=== PATIENT | male | born 1940 | race Caucasian/White ===

== ENCOUNTER → 2020-05-19 10:19 | Outpatient (BNVA) | payer MEDICARE, OTHER, SELFPAY | PROVIDERS: PCP Internal Medicine; Referring Provider Internal Medicine; Visit Provider Hospitalist | DX: J41.0 Simple chronic bronchitis (principal); J98.4 Other disorders of lung; R93.89 Abnormal findings on diagnostic imaging of other specified body structures; Z79.51 Long term (current) use of inhaled steroids; Z79.899 Other long term (current) drug therapy; Z87.891 Personal history of nicotine dependence | CPT/HCPCS: 99212 ==

== ENCOUNTER → 2020-05-21 09:28 | Outpatient (BNVA) | payer MEDICARE, OTHER, SELFPAY | PROVIDERS: PCP Internal Medicine; Referring Provider Internal Medicine; Visit Provider Internal Medicine Cardiovascular Disease | DX: I25.10 Atherosclerotic heart disease of native coronary artery without angina pectoris (principal); I10 Essential (primary) hypertension; E78.5 Hyperlipidemia, unspecified; I25.2 Old myocardial infarction; Z79.02 Long term (current) use of antithrombotics/antiplatelets; Z79.82 Long term (current) use of aspirin | CPT/HCPCS: 99212 ==

== ENCOUNTER 2020-06-10 08:40 | Outpatient (REF) | payer MEDICARE, OTHER, SELFPAY ==
[2020-06-10 10:45] LABS: MANUAL DIFF FLAG NO
[2020-06-10 10:57] LABS: Basophils Absolute Auto 0.1 X10*3/uL (0.0-0.2); Basophils Percent Auto 0.7 % (0-2); Eosinophils Absolute Auto 0.2 X10*3/uL (0.0-0.4); Eosinophils Percent Auto 3.4 % (0-4); Hematocrit 46.1 % (42-52); Hemoglobin 14.6 g/dl (14.0-18.0); Imm Gran Abs Auto 0.01 X10*3/uL (0.00-0.03); Imm Gran Pct Auto 0.1 % (0.0-0.4); Lymphocytes Absolute Auto 1.7 X10*3/uL (1.2-4.9); Lymphocytes Percent Auto 24.1 % (20-40); Mean Corpuscular HGB Conc 31.7 g/dl (31.0-36.0); Mean Corpuscular Hemoglobin 28.6 pg (27.0-33.0); Mean Corpuscular Volume 90.2 fL (80-98); Mean Platelet Volume 11.7 fL (9.4-12.4); Monocytes Absolute Auto 0.6 X10*3/uL (0.1-1.2); Monocytes Percent Auto 8.9 % (2-11); Neutrophils Absolute Auto 4.4 X10*3/uL (2.0-8.3); Neutrophils Percent Auto 62.8 % (45-73); Platelet Count 156 X10*3/uL (160-400); Red Blood Count 5.11 X10*6/uL (4.60-5.80); Red Cell Distribution Width 13.4 % (11.0-16.0); White Blood Count 7.1 X10*3/uL (4.8-10.8)
[2020-06-10 11:28] LABS: Alanine Aminotransferase 31 U/L (0-40); Albumin Level 3.8 g/dL (3.5-5.0); Alkaline Phosphatase 73 U/L (39-117); Anion Gap 15 (12-20); Aspartate Amino Transferase 30 U/L (5-37); Bilirubin Total 1.7 mg/dL (0.0-1.0); Blood Urea Nitrogen 13 mg/dL (9-16); Calcium 8.6 mg/dL (8.4-10.2); Carbon Dioxide 22 mmol/L (22-29); Chloride 103 mmol/L (96-108); Estimated Glomerular Filt Rate 54; Glucose Random 189 mg/dL (60-115); Potassium 3.7 mmol/l (3.3-5.1); Sodium 136 mmol/L (135-145); Total Protein 6.9 g/dL (6.5-8.0)
[2020-06-10 12:05] LABS: Estimated Average Glucose 128 mg/dL; Hemoglobin A1C 161.2168 umol/L; Hemoglobin A1c % 6.1 %
[2020-06-10 12:38] LABS: Creatinine Urine 105.89 mg/dL; Microalbum/Creatinine Ratio Ur 18.8 ug/mg cr
== END 2020-06-10 08:41 | disposition home or self-care (01) ==
LOC: HO.10HDL 08:40
PROVIDERS: Visit Provider Internal Medicine
DX: R73.03 Prediabetes (principal); I25.10 Atherosclerotic heart disease of native coronary artery without angina pectoris; I12.9 Hypertensive chronic kidney disease with stage 1 through stage 4 chronic kidney disease, or unspecified chronic kidney disease; N18.9 Chronic kidney disease, unspecified; J44.9 Chronic obstructive pulmonary disease, unspecified
CPT/HCPCS: 36415; 80053; 82043; 83036; 85025

== ENCOUNTER 2020-09-17 08:32 | Outpatient (REF) | payer MEDICARE, OTHER, SELFPAY ==
[2020-09-17 10:05] LABS: MANUAL DIFF FLAG NO
[2020-09-17 10:23] LABS: Estimated Average Glucose 120 mg/dL; Hemoglobin A1c % 5.8 %
[2020-09-17 10:34] LABS: Alanine Aminotransferase 32 U/L (0-40); Albumin Level 3.9 g/dL (3.5-5.0); Alkaline Phosphatase 78 U/L (39-117); Anion Gap 13 (12-20); Aspartate Amino Transferase 27 U/L (5-37); Bilirubin Total 1.9 mg/dL (0.0-1.0); Blood Urea Nitrogen 15 mg/dL (9-16); Calcium 9.1 mg/dL (8.4-10.2); Carbon Dioxide 25 mmol/L (22-29); Chloride 107 mmol/L (96-108); Estimated Glomerular Filt Rate 51; Glucose Fasting 125 mg/dL (60-99); Potassium 4.1 mmol/L (3.3-5.1); Sodium 141 mmol/L (135-145); Total Protein 7.3 g/dL (6.5-8.0)
[2020-09-17 10:35] LABS: Basophils Absolute Auto 0.1 X10*3/uL (0.0-0.2); Basophils Percent Auto 0.6 % (0-2); Eosinophils Absolute Auto 0.2 X10*3/uL (0.0-0.4); Eosinophils Percent Auto 2.6 % (0-4); Hematocrit 47.1 % (42-52); Hemoglobin 15.4 g/dl (14.0-18.0); Imm Gran Abs Auto 0.03 X10*3/uL (0.00-0.03); Imm Gran Pct Auto 0.4 % (0.0-0.4); Lymphocytes Absolute Auto 2.2 X10*3/uL (1.2-4.9); Lymphocytes Percent Auto 25.9 % (20-40); Mean Corpuscular HGB Conc 32.7 g/dl (31.0-36.0); Mean Corpuscular Hemoglobin 28.7 pg (27.0-33.0); Mean Corpuscular Volume 87.7 fL (80-98); Mean Platelet Volume 12.2 fL (9.4-12.4); Monocytes Absolute Auto 0.8 X10*3/uL (0.1-1.2); Monocytes Percent Auto 9.4 % (2-11); Neutrophils Absolute Auto 5.1 X10*3/uL (2.0-8.3); Neutrophils Percent Auto 61.1 % (45-73); Platelet Count 166 X10*3/uL (160-400); Red Blood Count 5.37 X10*6/uL (4.60-5.80); Red Cell Distribution Width 13.6 % (11.0-16.0); White Blood Count 8.4 X10*3/uL (4.8-10.8)
[2020-09-17 10:57] LABS: Free T4 (Free Thyroxine) 1.03 ng/dL (0.71-1.85); Thyroid Stimulating Hormone 1.13 uIU/mL (0.32-4.0)
== END 2020-09-17 08:33 | disposition home or self-care (01) ==
LOC: HO.10HDL 08:32
PROVIDERS: Visit Provider Internal Medicine
DX: R73.03 Prediabetes (principal); I12.9 Hypertensive chronic kidney disease with stage 1 through stage 4 chronic kidney disease, or unspecified chronic kidney disease; N18.9 Chronic kidney disease, unspecified; J44.9 Chronic obstructive pulmonary disease, unspecified; K21.9 Gastro-esophageal reflux disease without esophagitis; R68.89 Other general symptoms and signs
CPT/HCPCS: 36415; 80053; 83036; 84439; 84443; 85025

== ENCOUNTER → 2020-12-17 10:20 | Outpatient (BNVA) | payer MEDICARE, OTHER, SELFPAY | PROVIDERS: PCP Internal Medicine; Visit Provider Hospitalist | DX: J41.0 Simple chronic bronchitis (principal); J98.4 Other disorders of lung; R93.89 Abnormal findings on diagnostic imaging of other specified body structures; J31.0 Chronic rhinitis | CPT/HCPCS: 99212 ==

== ENCOUNTER 2021-01-12 10:15 | Outpatient (REF) | payer MEDICARE, OTHER, SELFPAY ==
--- NOTE | ~2021-01-12 | XR_ITS ---
EXAMINATION: XR CHEST CLINICAL INFORMATION: Other disorder of lung COMPARISON: Previous chest x-rays most recent December 2019 TECHNIQUE: 2 views of the chest were obtained. FINDINGS: The cardiac and mediastinal contours are stable. The thoracic aorta is tortuous but unchanged. The lungs are clear. There is no pleural effusion or pneumothorax. There are degenerative changes of the spine. XR/XR chest 2V IMPRESSION: No evidence for acute disease in the chest.
[2021-01-12 13:21] LABS: MANUAL DIFF FLAG NO
[2021-01-12 13:30] LABS: Basophils Absolute Auto 0.1 X10*3/uL (0.0-0.2); Basophils Percent Auto 0.7 % (0-2); Eosinophils Absolute Auto 0.2 X10*3/uL (0.0-0.4); Eosinophils Percent Auto 2.5 % (0-4); Hematocrit 47.4 % (42-52); Hemoglobin 15.3 g/dl (14.0-18.0); Imm Gran Abs Auto 0.02 X10*3/uL (0.00-0.03); Imm Gran Pct Auto 0.3 % (0.0-0.4); Lymphocytes Absolute Auto 1.8 X10*3/uL (1.2-4.9); Lymphocytes Percent Auto 23.2 % (20-40); Mean Corpuscular HGB Conc 32.3 g/dl (31.0-36.0); Mean Corpuscular Hemoglobin 28.6 pg (27.0-33.0); Mean Corpuscular Volume 88.6 fL (80-98); Mean Platelet Volume 12.4 fL (9.4-12.4); Monocytes Absolute Auto 0.7 X10*3/uL (0.1-1.2); Monocytes Percent Auto 9.1 % (2-11); Neutrophils Absolute Auto 4.9 X10*3/uL (2.0-8.3); Neutrophils Percent Auto 64.2 % (45-73); Platelet Count 151 X10*3/uL (160-400); Red Blood Count 5.35 X10*6/uL (4.60-5.80); Red Cell Distribution Width 13.7 % (11.0-16.0); White Blood Count 7.6 X10*3/uL (4.8-10.8)
[2021-01-12 13:35] LABS: Estimated Average Glucose 126 mg/dL
[2021-01-12 13:59] LABS: Alanine Aminotransferase 37 U/L (0-40); Alkaline Phosphatase 83 U/L (39-117); Anion Gap 12 (12-20); Aspartate Amino Transferase 36 U/L (5-37); Bilirubin Total 2.4 mg/dL (0.0-1.0); Blood Urea Nitrogen 16 mg/dL (9-16); Calcium 9.2 mg/dL (8.4-10.2); Carbon Dioxide 24 mmol/L (22-29); Chloride 107 mmol/L (96-108); Estimated Glomerular Filt Rate 50; Glucose Random 215 mg/dL (60-115); Potassium 3.7 mmol/L (3.3-5.1); Sodium 139 mmol/L (135-145); Total Protein 7.3 g/dL (6.5-8.0)
== END 2021-01-12 10:16 | disposition home or self-care (01) ==
LOC: HO.10HDL 10:15
PROVIDERS: PCP Internal Medicine; Visit Provider Internal Medicine
DX: J98.4 Other disorders of lung (principal); I10 Essential (primary) hypertension; J44.9 Chronic obstructive pulmonary disease, unspecified; N11.8 Other chronic tubulo-interstitial nephritis; R73.03 Prediabetes; K21.9 Gastro-esophageal reflux disease without esophagitis
CPT/HCPCS: 36415; 71046; 80053; 83036; 85025

== ENCOUNTER → 2021-02-15 13:40 | Outpatient (BNVA) | payer MEDICARE, OTHER, SELFPAY | PROVIDERS: Visit Provider Orthopaedic Surgery | DX: M65.332 Trigger finger, left middle finger (principal); M79.645 Pain in left finger(s); M65.331 Trigger finger, right middle finger; M25.642 Stiffness of left hand, not elsewhere classified | CPT/HCPCS: 99202 ==

== ENCOUNTER 2021-04-13 10:46 | Outpatient (REF) | payer MEDICARE, OTHER, SELFPAY ==
[2021-04-13 13:54] LABS: MANUAL DIFF FLAG NO
[2021-04-13 14:01] LABS: Basophils Absolute Auto 0.1 X10*3/uL (0.0-0.2); Basophils Percent Auto 0.6 % (0-2); Eosinophils Absolute Auto 0.2 X10*3/uL (0.0-0.4); Eosinophils Percent Auto 1.8 % (0-4); Hematocrit 48.2 % (42-52); Hemoglobin 15.5 g/dl (14.0-18.0); Imm Gran Abs Auto 0.01 X10*3/uL (0.00-0.03); Imm Gran Pct Auto 0.1 % (0.0-0.4); Lymphocytes Absolute Auto 1.8 X10*3/uL (1.2-4.9); Lymphocytes Percent Auto 21.6 % (20-40); Mean Corpuscular HGB Conc 32.2 g/dl (31.0-36.0); Mean Corpuscular Hemoglobin 28.2 pg (27.0-33.0); Mean Corpuscular Volume 87.6 fL (80-98); Mean Platelet Volume 12.4 fL (9.4-12.4); Monocytes Absolute Auto 0.7 X10*3/uL (0.1-1.2); Monocytes Percent Auto 8.9 % (2-11); Neutrophils Absolute Auto 5.5 X10*3/uL (2.0-8.3); Platelet Count 174 X10*3/uL (160-400); Red Cell Distribution Width 13.4 % (11.0-16.0); White Blood Count 8.2 X10*3/uL (4.8-10.8)
[2021-04-13 14:03] LABS: Appearance Urine CLEAR; Color Urine YELLOW; Glucose Urine UA NEG (NEG); Leukocyte Esterase Urine NEG (NEG); Nitrite Urine NEG (NEG); Specific Gravity - Urine 1.025 (1.005-1.025); Urine Blood NEG (NEG); Urine Ketones NEG (NEG); Urine Protein NEG (NEG-TRACE)
[2021-04-13 14:11] LABS: Estimated Average Glucose 123 mg/dL; Hemoglobin A1c % 5.9 %
[2021-04-13 14:32] LABS: Alanine Aminotransferase 29 U/L (0-40); Albumin Level 3.9 g/dL (3.5-5.0); Alkaline Phosphatase 89 U/L (39-117); Anion Gap 12 (12-20); Aspartate Amino Transferase 26 U/L (5-37); Blood Urea Nitrogen 15 mg/dL (9-16); Calcium 9.2 mg/dL (8.4-10.2); Carbon Dioxide 22 mmol/L (22-29); Chloride 108 mmol/L (96-108); Estimated Glomerular Filt Rate 52; Glucose Random 165 mg/dL (60-115); Potassium 4.1 mmol/L (3.3-5.1); Sodium 138 mmol/L (135-145); Total Protein 6.9 g/dL (6.5-8.0)
[2021-04-13 14:33] LABS: Creatinine Urine 154.68 mg/dL; Microalbum/Creatinine Ratio Ur 9.6 ug/mg cr
== END 2021-04-13 10:47 | disposition home or self-care (01) ==
LOC: HO.10HDL 10:46
PROVIDERS: Visit Provider Internal Medicine
DX: I25.10 Atherosclerotic heart disease of native coronary artery without angina pectoris (principal); J44.9 Chronic obstructive pulmonary disease, unspecified; I12.9 Hypertensive chronic kidney disease with stage 1 through stage 4 chronic kidney disease, or unspecified chronic kidney disease; N18.9 Chronic kidney disease, unspecified; N40.0 Benign prostatic hyperplasia without lower urinary tract symptoms; K21.9 Gastro-esophageal reflux disease without esophagitis
CPT/HCPCS: 36415; 80053; 81003; 82043; 83036; 85025

== ENCOUNTER → 2021-07-05 09:35 | Outpatient (BNVA) | payer MEDICARE, OTHER, SELFPAY | PROVIDERS: PCP Internal Medicine; Visit Provider Hospitalist | DX: J98.4 Other disorders of lung (principal); J41.0 Simple chronic bronchitis; J31.0 Chronic rhinitis; R93.89 Abnormal findings on diagnostic imaging of other specified body structures | CPT/HCPCS: 99212 ==

== ENCOUNTER 2021-08-11 08:43 | Outpatient (REF) | payer MEDICARE, OTHER, SELFPAY ==
[2021-08-11 10:05] LABS: MANUAL DIFF FLAG NO
[2021-08-11 10:08] LABS: Basophils Absolute Auto 0.1 X10*3/uL (0.0-0.2); Basophils Percent Auto 0.7 % (0-2); Eosinophils Absolute Auto 0.3 X10*3/uL (0.0-0.4); Eosinophils Percent Auto 3.7 % (0-4); Hematocrit 47.4 % (42.0-52.0); Hemoglobin 15.2 g/dl (14.0-18.0); Imm Gran Abs Auto 0.01 X10*3/uL (0.00-0.03); Imm Gran Pct Auto 0.1 % (0.0-0.4); Lymphocytes Absolute Auto 2.3 X10*3/uL (1.2-4.9); Lymphocytes Percent Auto 30.2 % (20-40); Mean Corpuscular HGB Conc 32.1 g/dl (31.0-36.0); Mean Corpuscular Hemoglobin 28.5 pg (27.0-33.0); Mean Corpuscular Volume 88.9 fL (80.0-98.0); Mean Platelet Volume 11.3 fL (9.4-12.4); Monocytes Absolute Auto 0.8 X10*3/uL (0.1-1.2); Monocytes Percent Auto 9.9 % (2-11); Neutrophils Absolute Auto 4.2 x10*3/uL (2.0-8.3); Neutrophils Percent Auto 55.4 % (45-73); Platelet Count 161 X10*3/uL (160-400); Red Blood Count 5.33 X10*6/uL (4.60-5.80); Red Cell Distribution Width 13.5 % (11.0-16.0); White Blood Count 7.6 X10*3/uL (4.8-10.8)
[2021-08-11 10:52] LABS: Alanine Aminotransferase 32 U/L (0-40); Albumin Level 3.8 g/dL (3.5-5.0); Alkaline Phosphatase 98 U/L (39-117); Anion Gap 15 (12-20); Aspartate Amino Transferase 28 U/L (5-37); Bilirubin Total 1.8 mg/dL (0.0-1.0); Blood Urea Nitrogen 11 mg/dL (9-16); Calcium 9.2 mg/dL (8.4-10.2); Carbon Dioxide 21 mmol/L (22-29); Chloride 105 mmol/L (96-108); Estimated Glomerular Filt Rate 54; Glucose Random 192 mg/dL (60-115); Potassium 3.8 mmol/L (3.3-5.1); Sodium 137 mmol/L (135-145); Total Protein 6.8 g/dL (6.5-8.0)
== END 2021-08-11 08:44 | disposition home or self-care (01) ==
LOC: HO.10HDL 08:43
PROVIDERS: Visit Provider Internal Medicine
DX: R19.7 Diarrhea, unspecified (principal); I10 Essential (primary) hypertension; K21.9 Gastro-esophageal reflux disease without esophagitis; R73.03 Prediabetes
CPT/HCPCS: 36415; 80053; 85025

== ENCOUNTER → 2021-08-26 14:10 | Outpatient (BNVA) | payer MEDICARE, OTHER, SELFPAY | PROVIDERS: PCP Internal Medicine; Referring Provider Internal Medicine; Visit Provider Internal Medicine Cardiovascular Disease | DX: I25.10 Atherosclerotic heart disease of native coronary artery without angina pectoris (principal); I10 Essential (primary) hypertension; E78.5 Hyperlipidemia, unspecified; I25.2 Old myocardial infarction | CPT/HCPCS: 93005; 99212 ==

== ENCOUNTER → 2022-01-04 12:57 | Outpatient (BNVA) | payer MEDICARE, OTHER, SELFPAY | PROVIDERS: PCP Internal Medicine; Visit Provider Hospitalist | DX: J41.0 Simple chronic bronchitis (principal); J98.4 Other disorders of lung; R93.89 Abnormal findings on diagnostic imaging of other specified body structures; J31.0 Chronic rhinitis; G47.00 Insomnia, unspecified; Z79.899 Other long term (current) drug therapy | CPT/HCPCS: 99212 ==

== ENCOUNTER 2022-01-20 08:04 | Outpatient (REF) | payer MEDICARE, OTHER, SELFPAY ==
[2022-01-20 11:11] LABS: Estimated Average Glucose 134 mg/dL; Hemoglobin A1c % 6.3 %
[2022-01-20 11:26] LABS: Alanine Aminotransferase 25 U/L (0-40); Albumin Level 3.8 g/dL (3.5-5.0); Alkaline Phosphatase 75 U/L (39-117); Anion Gap 13 (12-20); Aspartate Amino Transferase 27 U/L (5-37); Bilirubin Total 1.9 mg/dL (0.0-1.0); Blood Urea Nitrogen 13 mg/dL (9-16); Calcium 8.9 mg/dL (8.4-10.2); Carbon Dioxide 22 mmol/L (22-29); Chloride 105 mmol/L (96-108); Estimated Glomerular Filt Rate 51; Glucose Fasting 139 mg/dL (60-99); Sodium 136 mmol/L (135-145)
== END 2022-01-20 08:05 | disposition home or self-care (01) ==
LOC: HO.10HDL 08:04
PROVIDERS: Visit Provider Internal Medicine
DX: R73.03 Prediabetes (principal); I25.10 Atherosclerotic heart disease of native coronary artery without angina pectoris; J44.9 Chronic obstructive pulmonary disease, unspecified; N18.9 Chronic kidney disease, unspecified
CPT/HCPCS: 36415; 80053; 83036

== ENCOUNTER 2022-02-23 07:42 | Outpatient (REF) | payer MEDICARE, OTHER, SELFPAY ==
[2022-02-23 08:31] LABS: Estimated Average Glucose 143 mg/dL; Hemoglobin A1c % 6.6 %
[2022-02-23 08:44] LABS: Alanine Aminotransferase 30 U/L (0-40); Albumin Level 3.8 g/dL (3.5-5.0); Alkaline Phosphatase 86 U/L (39-117); Anion Gap 15 (12-20); Aspartate Amino Transferase 31 U/L (5-37); Bilirubin Total 1.8 mg/dL (0.0-1.0); Blood Urea Nitrogen 12 mg/dL (9-16); Carbon Dioxide 22 mmol/L (22-29); Chloride 106 mmol/L (96-108); Estimated Glomerular Filt Rate 47; Glucose Random 172 mg/dL (60-115); Potassium 4.1 mmol/L (3.3-5.1); Sodium 139 mmol/L (135-145)
== END 2022-02-23 07:43 | disposition home or self-care (01) ==
LOC: HO.LAB 07:42
PROVIDERS: PCP Internal Medicine; Visit Provider Internal Medicine
DX: E11.9 Type 2 diabetes mellitus without complications (principal); J44.9 Chronic obstructive pulmonary disease, unspecified; I25.10 Atherosclerotic heart disease of native coronary artery without angina pectoris; N18.9 Chronic kidney disease, unspecified
CPT/HCPCS: 36415; 80053; 83036

== ENCOUNTER → 2022-04-05 12:59 | Outpatient (BNVA) | payer MEDICARE, OTHER, SELFPAY | PROVIDERS: PCP Internal Medicine; Visit Provider Hospitalist | DX: J41.0 Simple chronic bronchitis (principal); J98.4 Other disorders of lung; R93.89 Abnormal findings on diagnostic imaging of other specified body structures; J31.0 Chronic rhinitis; G47.00 Insomnia, unspecified | CPT/HCPCS: 99212 ==

== ENCOUNTER → 2022-05-18 14:05 | Outpatient (BNVA) | payer MEDICARE, OTHER, SELFPAY | PROVIDERS: PCP Internal Medicine; Referring Provider Internal Medicine; Visit Provider Internal Medicine Cardiovascular Disease | DX: I25.10 Atherosclerotic heart disease of native coronary artery without angina pectoris (principal); I20.8 Other forms of angina pectoris; G47.30 Sleep apnea, unspecified; Z98.61 Coronary angioplasty status | CPT/HCPCS: 99212 ==

== ENCOUNTER 2022-08-24 07:49 | Outpatient (REF) | payer MEDICARE, OTHER, SELFPAY ==
[2022-08-24 10:38] LABS: MANUAL DIFF FLAG NO
[2022-08-24 10:40] LABS: Appearance Urine Clear; Color Urine Yellow; Glucose Urine UA Negative (Negative); Leukocyte Esterase Urine Negative (Negative); Nitrite Urine Negative (Negative); Urine Blood Negative (Negative); Urine Ketones Negative (Negative); Urine Protein Negative (Neg-Trace)
[2022-08-24 10:42] LABS: Basophils Absolute Auto 0.1 X10*3/uL (0.0-0.2); Basophils Percent Auto 0.7 % (0-2); Eosinophils Absolute Auto 0.2 X10*3/uL (0.0-0.4); Eosinophils Percent Auto 1.6 % (0-4); Hematocrit 45.8 % (42.0-52.0); Hemoglobin 14.8 g/dl (14.0-18.0); Imm Gran Abs Auto 0.05 X10*3/uL (0.00-0.03); Imm Gran Pct Auto 0.5 % (0.0-0.4); Lymphocytes Absolute Auto 2.7 X10*3/uL (1.2-4.9); Lymphocytes Percent Auto 24.7 % (20-40); Mean Corpuscular HGB Conc 32.3 g/dl (31.0-36.0); Mean Corpuscular Hemoglobin 28.7 pg (27.0-33.0); Mean Corpuscular Volume 88.8 fL (80.0-98.0); Mean Platelet Volume 12.4 fL (9.4-12.4); Monocytes Absolute Auto 1.1 X10*3/uL (0.1-1.2); Monocytes Percent Auto 10.2 % (2-11); Neutrophils Absolute Auto 6.9 x10*3/uL (2.0-8.3); Neutrophils Percent Auto 62.3 % (45-73); Platelet Count 188 X10*3/uL (160-400); Red Blood Count 5.16 X10*6/uL (4.60-5.80); Red Cell Distribution Width 13.4 % (11.0-16.0)
[2022-08-24 11:01] LABS: Estimated Average Glucose 166 mg/dL; Hemoglobin A1c % 7.4 %
[2022-08-24 11:07] LABS: Alanine Aminotransferase 31 U/L (0-40); Albumin Level 3.5 g/dL (3.5-5.0); Alkaline Phosphatase 81 U/L (39-117); Anion Gap 13 (12-20); Aspartate Amino Transferase 32 U/L (5-37); Blood Urea Nitrogen 10 mg/dL (9-16); Calcium 8.8 mg/dL (8.4-10.2); Carbon Dioxide 25 mmol/L (22-29); Chloride 105 mmol/L (96-108); Cholesterol 94 mg/dL; Estimated Glomerular Filt Rate 56; Glucose Fasting 175 mg/dL (60-99); HDL Cholesterol 26 mg/dL; LDL Cholesterol Calculated 47 mg/dl; Potassium 3.8 mmol/L (3.3-5.1); Sodium 139 mmol/L (135-145); Total Protein 6.4 g/dL (6.5-8.0); Triglycerides 106 mg/dL
[2022-08-24 11:12] LABS: Creatinine Urine 106.43 mg/dL; Microalbum/Creatinine Ratio Ur 9.3 ug/mg cr
[2022-08-24 11:24] LABS: Prostate Specific Antigen Scr 2.32 ng/mL (<0.05-4.0)
== END 2022-08-24 07:50 | disposition home or self-care (01) ==
LOC: HO.10HDL 07:49
PROVIDERS: Visit Provider Internal Medicine
DX: I25.10 Atherosclerotic heart disease of native coronary artery without angina pectoris (principal); E11.22 Type 2 diabetes mellitus with diabetic chronic kidney disease; I13.0 Hypertensive heart and chronic kidney disease with heart failure and stage 1 through stage 4 chronic kidney disease, or unspecified chronic kidney disease; N18.9 Chronic kidney disease, unspecified; I50.9 Heart failure, unspecified; E78.00 Pure hypercholesterolemia, unspecified; Z12.5 Encounter for screening for malignant neoplasm of prostate
CPT/HCPCS: 36415; 80053; 80061; 81003; 82043; 83036; 84153; 85025

== ENCOUNTER → 2022-09-13 14:42 | Outpatient (BNVA) | payer MEDICARE, OTHER, SELFPAY | PROVIDERS: PCP Internal Medicine; Visit Provider Hospitalist | DX: J41.0 Simple chronic bronchitis (principal); J98.4 Other disorders of lung; J31.0 Chronic rhinitis; G47.00 Insomnia, unspecified; R93.89 Abnormal findings on diagnostic imaging of other specified body structures | CPT/HCPCS: 99212 ==

== ENCOUNTER 2022-11-14 08:36 | Outpatient (REF) | payer MEDICARE, OTHER, SELFPAY ==
[2022-11-14 11:02] LABS: Anion Gap 15 (12-20); Blood Urea Nitrogen 12 mg/dL (9-16); Calcium 8.8 mg/dL (8.4-10.2); Carbon Dioxide 23 mmol/L (22-29); Chloride 106 mmol/L (96-108); Estimated Glomerular Filt Rate 59; Glucose Random 157 mg/dL (60-115); Potassium 3.9 mmol/L (3.3-5.1); Sodium 140 mmol/L (135-145)
[2022-11-14 11:21] LABS: Estimated Average Glucose 169 mg/dL; Hemoglobin A1c % 7.5 %
== END 2022-11-14 08:37 | disposition home or self-care (01) ==
LOC: HO.10HDL 08:36
PROVIDERS: Visit Provider Internal Medicine
DX: I12.9 Hypertensive chronic kidney disease with stage 1 through stage 4 chronic kidney disease, or unspecified chronic kidney disease (principal); E11.22 Type 2 diabetes mellitus with diabetic chronic kidney disease; N18.9 Chronic kidney disease, unspecified; I25.10 Atherosclerotic heart disease of native coronary artery without angina pectoris
CPT/HCPCS: 36415; 80048; 83036

== ENCOUNTER → 2022-12-27 14:29 | Outpatient (BNVA) | payer MEDICARE, OTHER, SELFPAY | PROVIDERS: PCP Internal Medicine; Referring Provider Internal Medicine; Visit Provider Nurse Practitioner Family | DX: I25.10 Atherosclerotic heart disease of native coronary artery without angina pectoris (principal); I10 Essential (primary) hypertension; E78.5 Hyperlipidemia, unspecified; Z95.5 Presence of coronary angioplasty implant and graft; Z98.890 Other specified postprocedural states | CPT/HCPCS: 99212 ==

== ENCOUNTER 2023-03-14 14:37 | Outpatient (AMB) | payer MEDICARE, OTHER, SELFPAY ==
--- NOTE | 2023-03-14 14:43 | MHC.OFFVIS ---
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 Apparently back several months ago his admitted to the hospital with pneumonia. His chest x-ray demonstrating some areas of airspace disease. Subsequent x-ray demonstrated clearing of those abnormalities. However, his very pronounced aortic arch. He continues to have significant shortness of breath with minimal activity. He also has some fatigue related to that. Also complains of coughing usually nonproductive in nature. He has been on Breo with good effect. Also has a rescue inhaler that he uses at times. He also has a nebulizer he typically uses once or twice a month. During the visit we did go for 6 minutes walk test in the patient did desaturate down to about 90%. Heart rate state relatively stable around 100. The patient did not qualify for oxygen he was able to ambulate for total of 550 ft. His dyspnea score was around 2 to 3/10. He became more symptomatic when his pulse ox dropped to the low 90s. The patient has not had a recent pulmonary function studies which will plan to do at this time. We also talked about his abnormal chest x-ray depending on his response to his inhalers consider getting a CT scan of the chest. 05/19/2020. The patient is here for pulmonary follow-up visit. Overall he is doing better. He has responded well to the Trelegy inhaler. His shortness of breath has improved. He has not required a short-acting beta agonist. He underwent pulmonary function studies that we personally reviewed in the office. Appears that he does have an obstructive process consistent with COPD. However, he also has a restrictive process. Unfortunately, he has gained around 20-30 lb. He is very upset about this as he does not need much. He is going to looking to online pulmonary rehabilitation in continue with healthy eating. Based on the fact that his breathing studies of improved hold off on a CT scan of the chest at this time. I will repeat his chest x-ray prior to the next visit. 12/17/2020 the patient is here for pulmonary follow-up visit. He still complaining of dyspnea on exertion. Navz-vw-vfyflwht severity. He has also gained weight. He has been trying to lose weight however has been very hard to do so. He stopped going to the gym during the pandemic. Now he has been vaccinated hopefully he will go back to the gym. He has a hard time exercising with the mask on and reassured him that now he is vaccinated he will be able to exercise without 1 as long as he still takes some precautions. We did talk about the Trelegy. He could potentially go on the higher dose but will be additional steroids and I do not believe that this to be a good option for him. Therefore continue with the 100 mcg does. Patient does complaint of nasal congestion and allergies. He has been taking adty-hri-edfkztt antihistamines. Will go ahead and start him on Singulair and also he will start nasal sinus rinses at nighttime with the Neti bottle. He was supposed to have a chest x-ray prior to this visit. However he did not have it. His last x-ray was back in December 2019 we personally reviewed demonstrating interval improvement of the interstitial changes. The patient will have in order to get an x-ray done after this visit or sometime afterwards. Will follow up in 6 months. 07/05/2021 the patient is here for a pulmonary follow-up visit. Since we last spoke the patient develops significant sinusitis. His symptoms continued to worsen. He finally was evaluated. He was given a course of antibiotics with partial resolution of the symptoms. He still complains of postnasal drip and cough in addition to significant nasal congestion. The patient had not started the singular. He does have significant allergies. He also has not taking any antihistamines. Therefore, encouraged him to start his anti allergy therapy. He does use nasal therapy. The patient also should be rinsing his nose with saline. in the meantime he continues to Trelegy inhaler. Has been affecting beneficial. He will continue the therapy at This time. The patient did get a chest x-ray back in December 2020 demonstrating no acute disease. Therefore no additional imaging warranted at this time. 01/04/2022 the patient is here for a pulmonary follow-up visit. The patient is complaining of significant daytime drowsiness. He feels like he is falling asleep all the time. He is tear with minimal activity. At the same time has a hard time sleeping. He usually stays up at nighttime. Partly due to the chest congestion and partly because he feels like is going to show can potentially in his sleep. In that gives him concerned and has a hard time sleeping because of that. He has never tried sleep aid. He has been on the trilogy with partial improvement of the symptoms. We did look at his EKG from back in August with a normal QTC. Will go ahead and start him on azithromycin. Hopefully that will improve chest congestion. I did request that he only uses for about a month no more than 2. In the meantime the patient is willing to try a sleep aid. Will start trazodone 1 tablet q.h.s. 1 hour before sleep. If does not enough he can always increase it to 2 tablets. If the patient continues to the chest congestion he also coming for chest x-ray. Otherwise will follow-up in the fall. The patient has any problems prior to his call the office. 04/05/2022 the patient is here for a pulmonary follow-up visit. Overall he is doing well. He responded wellg his mucus burden chronic bronchitis. The mucus is moderate severity. He continues on the Trelegy. Tolerating it well. We did review his last chest x-ray demonstrating no lung active issues although he has significant degenerative back issues. He does have back pain. We talked about alternative his chronic bronchitis. Will start him on Daliresp. for his chronic bronchitis. 09/13/2022 the patient is here for a pulmonary follow-up visit. Overall he is doing about same. He started developing worsening chronic cough. Initially was a little better but then got worse again after with illness. The cough is yellowish in color. Moderate severity. We did try Daliresp during the last visit. However, the patient developed adverse effects with dizziness and therefore he stop the medication. He had done well on azithromycin 3 times a week. We have stopped that in the past. I think it is reasonable to continue the azithromycin at least for 6-8 weeks and then stop it. I am hopeful that once the spring comes in and colds clear up that his symptoms will improve as well. He continues use the oxygen at nighttime. This has been affecting beneficial. He is using at 2 L. Will go ahead and repeat an overnight oximetry on 2 L to make sure that he is getting adequate oxygenation and also to make sure that he is not getting over a treated with oxygen supplementation at this time. 03/14/2023 the patient is here for pulmonary follow-up visit. Overall the patient is doing better. He continues with respiratory therapy. He does state that he does have wheezing in the morning. Typically moderate severity. He does use his rescue inhaler in the does improved. He does have a nebulizer but he does not use it. He does not seen using the Trelegy inhaler with good effect. We did talk about his singular medication. He stop taking it. I do believe he should go back on it specially if it was helping his nighttime and morning symptoms. He is going to try going back on and see if his symptoms improve. If he continues to have wheezing otherwise he will call to the op provide him with further recommendations. She continues use the oxygen at nighttime at 2 L with good effect. [facility] Medical History Abnormal chest x-ray Bronchitis CAD (coronary artery disease) Chronic restrictive lung disease Chronic rhinitis COPD (chronic obstructive pulmonary disease) Hyperlipidemia Hypertension Surgical History (Updated 12/27/22 @ 16:55 by Bonnie Zhang NP-C) H/O total knee replacement History of cataract surgery Hx of cardiac catheterization Family History Father No problems noted. Social History Patient Tobacco Use Status: Former Tobacco user Tobacco use type: Cigarette Years Smoked: 30 years Current occupational status: employed and retired Current occupation: rt hand/ self employeed/incubator Review of Systems Const Reports daytime sleepiness, Reports difficulty sleeping, Reports fatigue, Reports lethargy, Denies night sweats and Reports weight gain ENT Denies change in voice, Denies lip swelling, Denies mouth pain, Reports nasal congestion, Reports nasal discharge and Denies tongue swelling Card Denies chest pain and Reports dyspnea on exertion Resp Denies chest congestion, Reports cough, Denies hemoptysis, Denies excessive phlegm production and Reports dyspnea on exertion GI Denies abdominal pain Musc Denies no additional complaints Neuro Denies Neuro-related abnormal movements Psych Denies no additional complaints Endo Reports fatigue Freddy/Lymph Denies easy bleeding and Denies lymphadenopathy Aller/Immun Denies lip swelling and Denies tongue swelling Physical Exam Vital Signs: Last Vital Signs Pulse 83 03/14/23 14:44 Pulse Ox 93 03/14/23 14:44 Oxygen Delivery Method Room Air 03/14/23 14:44 BMI result Body Mass Index 34.7 Const General: alert Eyes Pupils: Equal, round and reactive pupils present Neck Neck: Yes normal visual inspection, Yes full ROM and Yes no lymphadenopathy Chest Chest palpation & inspection: normal inspection of the chest Resp Auscultation: diminished lung sounds Cardio Rate: regular rate Rhythm: regular rhythm Heart sounds: S1 normal heart sound present and S2 normal heart sound present GI Palpation (GI): Soft to palpation and nontender Auscultation: normal bowel sounds Skin General skin exam: rashes and/or lesions noted Neuro Cranial nerves: Yes Equal, round and reactive pupils present Assessment & Plan Assessment & Plan (1) COPD (chronic obstructive pulmonary disease): Code(s): J44.9 - Chronic obstructive pulmonary disease, unspecified Qualifiers: COPD type: chronic bronchitis Chronic bronchitis type: simple Qualified Code(s): J41.0 - Simple chronic bronchitis (2) Chronic restrictive lung disease: Code(s): J98.4 - Other disorders of lung (3) Abnormal chest x-ray: Code(s): R93.89 - Abnormal findings on diagnostic imaging of other specified body structures (4) Chronic rhinitis: Code(s): J31.0 - Chronic rhinitis (5) Insomnia: Code(s): G47.00 - Insomnia, unspecified Plan Continue Trelegy 200 nasal rinsing with neti bottle at night continue Singulair Restart exercise regimen continue oxygen 2L while sleeping F/U 6 months Medications: New montelukast 10 mg PO DAILY 30 days 30 tabs 11RF J45.909 - Unspecified asthma, uncomplicated albuterol sulfate 2.5 mg (3 mL) inhalation Q6H 30 days PRN 180 mL 11RF shortness of breath or wheezing Coding Level of Care Code Est Pt Level 4 (06163) Diagnoses COPD (chronic obstructive pulmonary disease) J41.0 COPD type: chronic bronchitis Chronic bronchitis type: simple Chronic restrictive lung disease J98.4 Abnormal chest x-ray R93.89 Chronic rhinitis J31.0 Insomnia G47.00 Time Spent (min) 19
[2023-03-14 14:44] VITALS: PULSE 83; O2SAT 93; BMI 34.7
== END 2023-03-14 15:03 | disposition home or self-care (01) ==
PROVIDERS: PCP Internal Medicine; Visit Provider Hospitalist
DX: J41.0 Simple chronic bronchitis (principal); J98.4 Other disorders of lung; R93.89 Abnormal findings on diagnostic imaging of other specified body structures; J31.0 Chronic rhinitis; G47.00 Insomnia, unspecified
CPT/HCPCS: 99214

== ENCOUNTER → 2023-03-14 14:37 | Outpatient (BNVA) | payer MEDICARE, OTHER, SELFPAY | PROVIDERS: PCP Internal Medicine; Visit Provider Hospitalist | DX: J41.0 Simple chronic bronchitis (principal); J98.4 Other disorders of lung; J31.0 Chronic rhinitis; R93.89 Abnormal findings on diagnostic imaging of other specified body structures; G47.00 Insomnia, unspecified | CPT/HCPCS: 99212 ==

== ENCOUNTER 2023-03-28 09:41 | Outpatient (REF) | payer MEDICARE, OTHER, SELFPAY ==
[2023-03-28 10:58] LABS: MANUAL DIFF FLAG NO
[2023-03-28 11:01] LABS: Basophils Absolute Auto 0.1 X10*3/uL (0.0-0.2); Basophils Percent Auto 0.8 % (0-2); Eosinophils Absolute Auto 0.3 X10*3/uL (0.0-0.4); Eosinophils Percent Auto 3.4 % (0-4); Hematocrit 43.6 % (42.0-52.0); Hemoglobin 14.2 g/dl (14.0-18.0); Imm Gran Abs Auto 0.03 X10*3/uL (0.00-0.03); Imm Gran Pct Auto 0.3 % (0.0-0.4); Lymphocytes Absolute Auto 1.8 X10*3/uL (1.2-4.9); Lymphocytes Percent Auto 20.5 % (20-40); Mean Corpuscular HGB Conc 32.6 g/dl (31.0-36.0); Mean Corpuscular Hemoglobin 28.6 pg (27.0-33.0); Mean Corpuscular Volume 87.9 fL (80.0-98.0); Mean Platelet Volume 12.1 fL (9.4-12.4); Monocytes Absolute Auto 0.8 X10*3/uL (0.1-1.2); Monocytes Percent Auto 9.4 % (2-11); Neutrophils Absolute Auto 5.7 x10*3/uL (2.0-8.3); Neutrophils Percent Auto 65.6 % (45-73); Platelet Count 159 X10*3/uL (160-400); Red Blood Count 4.96 X10*6/uL (4.60-5.80); Red Cell Distribution Width 13.2 % (11.0-16.0); White Blood Count 8.7 X10*3/uL (4.8-10.8)
[2023-03-28 11:23] LABS: Alanine Aminotransferase 23 U/L (0-40); Albumin Level 3.5 g/dL (3.5-5.0); Alkaline Phosphatase 79 U/L (39-117); Anion Gap 10 (12-20); Aspartate Amino Transferase 27 U/L (5-37); Bilirubin Total 1.9 mg/dL (0.0-1.0); Blood Urea Nitrogen 11 mg/dL (9-16); Calcium 8.8 mg/dL (8.4-10.2); Carbon Dioxide 25 mmol/L (22-29); Chloride 105 mmol/L (96-108); Estimated Glomerular Filt Rate 49; Glucose Random 229 mg/dL (60-115); Potassium 3.2 mmol/L (3.3-5.1); Sodium 137 mmol/L (135-145); Total Protein 6.8 g/dL (6.5-8.0)
[2023-03-28 12:41] LABS: Estimated Average Glucose 131 mg/dL; Hemoglobin A1c % 6.2 % (<6.0)
== END 2023-03-28 09:42 | disposition home or self-care (01) ==
LOC: HO.10HDL 09:41
PROVIDERS: Visit Provider Internal Medicine
DX: I25.10 Atherosclerotic heart disease of native coronary artery without angina pectoris (principal); I50.9 Heart failure, unspecified; N18.9 Chronic kidney disease, unspecified; E11.9 Type 2 diabetes mellitus without complications
CPT/HCPCS: 36415; 80053; 83036; 85025

== ENCOUNTER 2023-07-10 12:46 | Outpatient (AMB) | payer MEDICARE, OTHER, SELFPAY ==
[2023-07-10 12:57] VITALS: BP 140/62; PULSE 97; BMI 33.5
--- NOTE | 2023-07-10 12:57 | A.OFFVIS_ITS ---
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 Accompanied by: Daughter Allergies No Known Allergies [No Known Allergies*] Allergy (Verified 03/14/23 14:45) Medication List - Last Reconciled 07/10/23 by Jamal Gutierrez MD albuterol sulfate mg inhalation Q6-8H PRN albuterol sulfate 2.5 mg (3 mL) inhalation Q6H PRN 30 days amlodipine 5 mg PO DAILY aspirin (Adult Low Dose Aspirin) 81 mg PO DAILY atorvastatin 80 mg PO DAILY clopidogrel 75 mg PO DAILY doxazosin 2 mg PO DAILY furosemide 20 mg PO DAILY hydroxyzine HCl 25 mg PO TID PRN ipratropium bromide sprays intranasal montelukast 10 mg PO DAILY 30 days nebulizers As directed pantoprazole 40 mg PO DAILY tamsulosin 0.4 mg PO DAILY Trelegy Ellipta 200-62.5-25 mcg (bkkbpfklquw-xcihyadfv-ngdhlkmr) 1 inh inhalation DAILY NS HPI HPI Comments History of Present Illness Details 83-year-old gentleman here for follow-up . 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 Initially was on aspirin and ticagrelor but developed dyspnea for which she has ticagrelor was changed to Plavix. He did well after that. He was complaining of cold extremities and his beta-rick was decreased with some improvement in symptoms. 07/10/2023: He returns for follow-up. No chest discomfort. He is saying that he ran out of his beta-rick a week ago and he has noticed that when he is walking he is short of breath. He is denying any chest discomfort. No heart failure symptoms. He was taking Toprol-XL 12.5 mg daily which is a very small dose. He previously had issues with beta-rick with cold extremities and was quite distressed by that so we cut the dose and eventually advised him to stop the metoprolol. He said he stopped it but started taking the metoprolol again and then ran out a week ago. His hand and feet are quite warm right now. He is saying that he can tolerate taking metoprolol if required. [facility] Medical History Bronchitis Chronic rhinitis Hyperlipidemia Hypertension Abnormal chest x-ray Chronic restrictive lung disease COPD (chronic obstructive pulmonary disease) CAD (coronary artery disease) Surgical History Hx of cardiac catheterization History of cataract surgery H/O total knee replacement Family History Father No problems noted. Social History Patient Tobacco Use Status: Former Tobacco user Tobacco use type: Cigarette Years Smoked: 30 years Current occupational status: employed and retired Current occupation: rt hand/ self employeed/incubator Review of Systems Const Reports chills, Reports fatigue, Reports fever(s), Reports frequent falls, Reports weakness, Reports weight gain and Reports weight loss ENT Reports dizziness Card Reports chest pain, Reports leg edema, Reports lightheadedness, Reports palpitations, Reports dyspnea and Reports dyspnea on exertion Resp Reports cough, Reports dyspnea and Reports dyspnea on exertion GI Reports hematochezia Musc Reports abnormal gait, Reports muscle weakness, Reports numbness, Reports r adiating pain into limb and Reports tingling Neuro Reports abnormal gait, Reports dizziness, Reports frequent falls, Reports numbness, Reports tingling and Reports weakness Endo Reports fatigue and Reports palpitations Physical Exam Vital Signs: Last Vital Signs Pulse 97 07/10/23 12:57 BP 140/62 H 07/10/23 12:57 BMI result Body Mass Index 33.5 GENERAL APPEARANCE: in no acute distress, well developed, well nourished. NECK/THYROID: no carotid bruit, no jugular venous distention. SKIN: no suspicious lesions, warm and dry. HEART: no murmurs, regular rate and rhythm, S1, S2 normal. LUNGS: clear to auscultation bilaterally. ABDOMEN: normal, bowel sounds present, soft, nontender, nondistended. EXTREMITIES: no clubbing, cyanosis, or edema. PERIPHERAL PULSES: equal. NEUROLOGIC: nonfocal, alert and oriented. PSYCH: mood/affect full range. Office Procedures EKG Details: Sinus rhythm with first-degree AV block with [place] interval 276 milliseconds, heart rate 97 beats per minute, leftward axis, branch block, QTC 436 milliseconds. [id number], Complete Assessment & Plan Assessment & Plan (1) Stable angina: Code(s): I20.8 - Other forms of angina pectoris (2) Hypertension: Code(s): I10 - Essential (primary) hypertension Plan [age] gentleman here for follow-up. He has history of bronchial asthma and follows with pulmonology. He also had previous coronary disease and PCI. He is taking dual antiplatelet therapy. I have advised him to stop the aspirin and does take Plavix only. He said he ran out of metoprolol a week ago which helped with the cold sensation in his hands and feet but he also has noticed that he is little more short of breath. Clinically not in heart failure. I have advised him to restart metoprolol at the low dose and see if his breathing improves. I am not sure how it will help his breathing currently but he is saying that clearly is breathing our 1st. If he felt the same after starting it my inclination is that he should stop the metoprolol because it causes some distress to him specially in winter and may not be of any significant benefit to him as he is more than 2 years out from his previous PCI and has stable angina otherwise. Thank you for allowing me to participate in the care of your patient. Please feel free to contact me if you have any questions. Medications: New metoprolol succinate ER 12.5 mg (1/2 x 25 mg) PO DAILY 30 tabs 0RF Coding Level of Care Code Est Pt Level 3 (02668) Diagnoses Stable angina I20.8 Hypertension I10 CPT Codes EKG - CPT: 90819-Wniplofilutllivod, Complete ([id number])
== END 2023-07-10 14:01 | disposition home or self-care (01) ==
PROVIDERS: PCP Internal Medicine; Visit Provider Internal Medicine Cardiovascular Disease
DX: I20.8 Other forms of angina pectoris (principal); I10 Essential (primary) hypertension
CPT/HCPCS: 93010; 99213

== ENCOUNTER → 2023-07-10 12:46 | Outpatient (BNVA) | payer MEDICARE, OTHER, SELFPAY | PROVIDERS: PCP Internal Medicine; Visit Provider Internal Medicine Cardiovascular Disease | DX: I20.89 Other forms of angina pectoris (principal); I10 Essential (primary) hypertension | CPT/HCPCS: 93005; 99212 ==

== ENCOUNTER 2023-07-26 08:25 | Outpatient (REF) | payer MEDICARE, OTHER, SELFPAY ==
[2023-07-26 11:35] LABS: MANUAL DIFF FLAG NO
[2023-07-26 11:56] LABS: Basophils Absolute Auto 0.1 X10*3/uL (0.0-0.2); Basophils Percent Auto 0.9 % (0-2); Eosinophils Absolute Auto 0.2 X10*3/uL (0.0-0.4); Eosinophils Percent Auto 2.3 % (0-4); Hematocrit 45.5 % (42.0-52.0); Hemoglobin 14.8 g/dl (14.0-18.0); Imm Gran Abs Auto 0.02 X10*3/uL (0.00-0.03); Imm Gran Pct Auto 0.3 % (0.0-0.4); Lymphocytes Absolute Auto 2.3 X10*3/uL (1.2-4.9); Lymphocytes Percent Auto 29.3 % (20-40); Mean Corpuscular HGB Conc 32.5 g/dl (31.0-36.0); Mean Corpuscular Hemoglobin 28.1 pg (27.0-33.0); Mean Corpuscular Volume 86.5 fL (80.0-98.0); Mean Platelet Volume 12.4 fL (9.4-12.4); Monocytes Absolute Auto 0.8 X10*3/uL (0.1-1.2); Monocytes Percent Auto 10.8 % (2-11); Neutrophils Absolute Auto 4.3 x10*3/uL (2.0-8.3); Neutrophils Percent Auto 56.4 % (45-73); Platelet Count 154 X10*3/uL (160-400); Red Blood Count 5.26 X10*6/uL (4.60-5.80); Red Cell Distribution Width 13.4 % (11.0-16.0); White Blood Count 7.7 X10*3/uL (4.8-10.8)
[2023-07-26 12:28] LABS: Estimated Average Glucose 137 mg/dL; Hemoglobin A1c % 6.4 % (<6.0)
[2023-07-26 12:54] LABS: Creatinine Urine 213.94 mg/dL; Microalbum/Creatinine Ratio Ur 27.1 ug/mg cr (<30)
[2023-07-26 13:08] LABS: Alanine Aminotransferase 27 U/L (0-40); Albumin Level 3.6 g/dL (3.5-5.0); Alkaline Phosphatase 80 U/L (39-117); Anion Gap 11 (12-20); Aspartate Amino Transferase 27 U/L (5-37); Bilirubin Total 2.1 mg/dL (0.0-1.0); Blood Urea Nitrogen 11 mg/dL (9-16); Calcium 9.1 mg/dL (8.4-10.2); Carbon Dioxide 26 mmol/L (22-29); Chloride 107 mmol/L (96-108); Cholesterol 77 mg/dL (<200); Estimated Glomerular Filt Rate 51; Glucose Fasting 141 mg/dL (60-99); HDL Cholesterol 31 mg/dL (>40); LDL Cholesterol Calculated 32 mg/dL (<100); Potassium 3.4 mmol/L (3.3-5.1); Sodium 141 mmol/L (135-145); Triglycerides 71 mg/dL (<150)
== END 2023-07-26 08:26 | disposition home or self-care (01) ==
LOC: HO.WFDLDS 08:25
PROVIDERS: Visit Provider Internal Medicine
DX: E11.22 Type 2 diabetes mellitus with diabetic chronic kidney disease (principal); I13.0 Hypertensive heart and chronic kidney disease with heart failure and stage 1 through stage 4 chronic kidney disease, or unspecified chronic kidney disease; I50.9 Heart failure, unspecified; N18.9 Chronic kidney disease, unspecified; I25.10 Atherosclerotic heart disease of native coronary artery without angina pectoris; E78.00 Pure hypercholesterolemia, unspecified
CPT/HCPCS: 36415; 80053; 80061; 82043; 82570; 83036; 85025

== ENCOUNTER 2023-09-19 14:43 | Outpatient (AMB) | payer MEDICARE, OTHER, SELFPAY ==
[2023-09-19 14:46] VITALS: PULSE 75; O2SAT 92; BMI 33.1
--- NOTE | 2023-09-19 14:46 | MHC.OFFVIS ---
Intake Vital Signs 09/19/23 14:46 Height 5 ft 4 in Weight 193 lb BMI 33.1 Pulse 75 Pulse Source Pulse Oximeter Pulse Oximetry (%) 92 Oxygen Delivery Method Room Air Intake Visit Reasons: hypoxia Sales Operations Coordinator Required: No Allergies No Known Allergies [No Known Allergies*] Allergy (Verified 09/19/23 14:48) HPI HPI Comments History of Present Illness Details The patient is an 83-year-old gentleman with known history of CAD in addition to COPD. Apparently back several months ago his admitted to the hospital with pneumonia. His chest x-ray demonstrating some areas of airspace disease. Subsequent x-ray demonstrated clearing of those abnormalities. However, his very pronounced aortic arch. He continues to have significant shortness of breath with minimal activity. He also has some fatigue related to that. Also complains of coughing usually nonproductive in nature. He has been on Breo with good effect. Also has a rescue inhaler that he uses at times. He also has a nebulizer he typically uses once or twice a month. During the visit we did go for 6 minutes walk test in the patient did desaturate down to about 90%. Heart rate state relatively stable around 100. The patient did not qualify for oxygen he was able to ambulate for total of 550 ft. His dyspnea score was around 2 to 3/10. He became more symptomatic when his pulse ox dropped to the low 90s. The patient has not had a recent pulmonary function studies which will plan to do at this time. We also talked about his abnormal chest x-ray depending on his response to his inhalers consider getting a CT scan of the chest. 05/19/2020. The patient is here for pulmonary follow-up visit. Overall he is doing better. He has responded well to the Trelegy inhaler. His shortness of breath has improved. He has not required a short-acting beta agonist. He underwent pulmonary function studies that we personally reviewed in the office. Appears that he does have an obstructive process consistent with COPD. However, he also has a restrictive process. Unfortunately, he has gained around 20-30 lb. He is very upset about this as he does not need much. He is going to looking to online pulmonary rehabilitation in continue with healthy eating. Based on the fact that his breathing studies of improved hold off on a CT scan of the chest at this time. I will repeat his chest x-ray prior to the next visit. 12/17/2020 the patient is here for pulmonary follow-up visit. He still complaining of dyspnea on exertion. Jhch-te-rjfoljhm severity. He has also gained weight. He has been trying to lose weight however has been very hard to do so. He stopped going to the gym during the pandemic. Now he has been vaccinated hopefully he will go back to the gym. He has a hard time exercising with the mask on and reassured him that now he is vaccinated he will be able to exercise without 1 as long as he still takes some precautions. We did talk about the Trelegy. He could potentially go on the higher dose but will be additional steroids and I do not believe that this to be a good option for him. Therefore continue with the 100 mcg does. Patient does complaint of nasal congestion and allergies. He has been taking lxin-jwn-xmrmxgw antihistamines. Will go ahead and start him on Singulair and also he will start nasal sinus rinses at nighttime with the Neti bottle. He was supposed to have a chest x-ray prior to this visit. However he did not have it. His last x-ray was back in December 2019 we personally reviewed demonstrating interval improvement of the interstitial changes. The patient will have in order to get an x-ray done after this visit or sometime afterwards. Will follow up in 6 months. 07/05/2021 the patient is here for a pulmonary follow-up visit. Since we last spoke the patient develops significant sinusitis. His symptoms continued to worsen. He finally was evaluated. He was given a course of antibiotics with partial resolution of the symptoms. He still complains of postnasal drip and cough in addition to significant nasal congestion. The patient had not started the singular. He does have significant allergies. He also has not taking any antihistamines. Therefore, encouraged him to start his anti allergy therapy. He does use nasal therapy. The patient also should be rinsing his nose with saline. in the meantime he continues to Trelegy inhaler. Has been affecting beneficial. He will continue the therapy at This time. The patient did get a chest x-ray back in December 2020 demonstrating no acute disease. Therefore no additional imaging warranted at this time. 01/04/2022 the patient is here for a pulmonary follow-up visit. The patient is complaining of significant daytime drowsiness. He feels like he is falling asleep all the time. He is tear with minimal activity. At the same time has a hard time sleeping. He usually stays up at nighttime. Partly due to the chest congestion and partly because he feels like is going to show can potentially in his sleep. In that gives him concerned and has a hard time sleeping because of that. He has never tried sleep aid. He has been on the trilogy with partial improvement of the symptoms. We did look at his EKG from back in August with a normal QTC. Will go ahead and start him on azithromycin. Hopefully that will improve chest congestion. I did request that he only uses for about a month no more than 2. In the meantime the patient is willing to try a sleep aid. Will start trazodone 1 tablet q.h.s. 1 hour before sleep. If does not enough he can always increase it to 2 tablets. If the patient continues to the chest congestion he also coming for chest x-ray. Otherwise will follow-up in the fall. The patient has any problems prior to his call the office. 04/05/2022 the patient is here for a pulmonary follow-up visit. Overall he is doing well. He responded wellg his mucus burden chronic bronchitis. The mucus is moderate severity. He continues on the Trelegy. Tolerating it well. We did review his last chest x-ray demonstrating no lung active issues although he has significant degenerative back issues. He does have back pain. We talked about alternative his chronic bronchitis. Will start him on Daliresp. for his chronic bronchitis. 09/13/2022 the patient is here for a pulmonary follow-up visit. Overall he is doing about same. He started developing worsening chronic cough. Initially was a little better but then got worse again after with illness. The cough is yellowish in color. Moderate severity. We did try Daliresp during the last visit. However, the patient developed adverse effects with dizziness and therefore he stop the medication. He had done well on azithromycin 3 times a week. We have stopped that in the past. I think it is reasonable to continue the azithromycin at least for 6-8 weeks and then stop it. I am hopeful that once the spring comes in and colds clear up that his symptoms will improve as well. He continues use the oxygen at nighttime. This has been affecting beneficial. He is using at 2 L. Will go ahead and repeat an overnight oximetry on 2 L to make sure that he is getting adequate oxygenation and also to make sure that he is not getting over a treated with oxygen supplementation at this time. 03/14/2023 the patient is here for pulmonary follow-up visit. Overall the patient is doing better. He continues with respiratory therapy. He does state that he does have wheezing in the morning. Typically moderate severity. He does use his rescue inhaler in the does improved. He does have a nebulizer but he does not use it. He does not seen using the Trelegy inhaler with good effect. We did talk about his singular medication. He stop taking it. I do believe he should go back on it specially if it was helping his nighttime and morning symptoms. He is going to try going back on and see if his symptoms improve. If he continues to have wheezing otherwise he will call to the op provide him with further recommendations. She continues use the oxygen at nighttime at 2 L with good effect. 09/19/2023 the patient is here for a pulmonary follow-up visit. The patient has been complaining of worsening chest congestion for the last week. He feels that also developing some chest pressure. Moderate severity. He is going to coughing spells that are pretty significant for him. He does lose his breath when. Denies any fevers or chills. Denies any sick conflicts. The patient also has been using his oxygen with good effect. He has also been using his respiratory medicines with good improvement but still having ongoing symptoms. On exam he does have some bronchospastic coughing and some maintenance auditory wheezing. Therefore we did talk about ways treat his lower respiratory infection likely flaring up his COPD. Therefore I will prescribe him Z-Bari in addition to a Medrol pack. He should be using his nebulizer more often as well for bronchodilation and mucus clearance. If the patient is no better who call the office for reassessment and should have a chest x-ray. Otherwise follow-up in 6 months he continues use the oxygen at nighttime with good effect. [facility] Medical History (Updated 09/19/23 @ 21:18 by Charli Johnson MD) Bronchitis Chronic rhinitis Hyperlipidemia Hypertension Abnormal chest x-ray Chronic restrictive lung disease COPD (chronic obstructive pulmonary disease) CAD (coronary artery disease) Surgical History Hx of cardiac catheterization History of cataract surgery H/O total knee replacement Family History Father No problems noted. Social History Patient Tobacco Use Status: Former Tobacco user Tobacco use type: Cigarette Years Smoked: 30 years Current occupational status: employed and retired Current occupation: rt hand/ self employeed/incubator Review of Systems Const Reports daytime sleepiness, Reports difficulty sleeping, Reports fatigue, Reports lethargy, Denies night sweats and Reports weight gain ENT Denies change in voice, Denies lip swelling, Denies mouth pain, Reports nasal congestion, Reports nasal discharge and Denies tongue swelling Card Denies chest pain and Reports dyspnea on exertion Resp Reports chest congestion, Reports cough, Denies hemoptysis, Denies excessive phlegm production, Reports dyspnea on exertion and Reports wheezing GI Denies abdominal pain Musc Denies no additional complaints Neuro Denies Neuro-related abnormal movements Psych Denies no additional complaints Endo Reports fatigue Freddy/Lymph Denies easy bleeding and Denies lymphadenopathy Aller/Immun Denies lip swelling, Denies tongue swelling and Reports wheezing Physical Exam Vital Signs: Last Vital Signs Pulse 75 09/19/23 14:46 Pulse Ox 92 09/19/23 14:46 Oxygen Delivery Method Room Air 09/19/23 14:46 BMI result Body Mass Index 33.1 Const General: alert Eyes Pupils: Equal, round and reactive pupils present Neck Neck: Yes normal visual inspection, Yes full ROM and Yes no lymphadenopathy Chest Chest palpation & inspection: normal inspection of the chest Resp Effort & Inspection: Actively coughing and prolonged expiratory phase Auscultation: wheezes and diminished lung sounds Cardio Rate: regular rate Rhythm: regular rhythm Heart sounds: S1 normal heart sound present and S2 normal heart sound present GI Palpation (GI): Soft to palpation and nontender Auscultation: normal bowel sounds Skin General skin exam: rashes and/or lesions noted Neuro Cranial nerves: Yes Equal, round and reactive pupils present Assessment & Plan Assessment & Plan (1) COPD (chronic obstructive pulmonary disease): Code(s): J44.9 - Chronic obstructive pulmonary disease, unspecified Qualifiers: COPD type: COPD with acute exacerbation Qualified Code(s): J44.1 - Chronic obstructive pulmonary disease with (acute) exacerbation (2) Chronic restrictive lung disease: Code(s): J98.4 - Other disorders of lung (3) Abnormal chest x-ray: Code(s): R93.89 - Abnormal findings on diagnostic imaging of other specified body structures (4) Chronic rhinitis: Code(s): J31.0 - Chronic rhinitis (5) Insomnia: Code(s): G47.00 - Insomnia, unspecified Qualifiers: Insomnia type: primary Qualified Code(s): F51.01 - Primary insomnia Plan start Zpack start medrol pk use nebulizer 2-3 times a day Continue Trelegy 200 nasal rinsing with neti bottle at night continue Singulair continue oxygen 2L while sleeping F/U 6 months Medications: New azithromycin 500 mg PO DAILY 5 days 5 tabs 0RF methylprednisolone (Medrol (Bari)) PO PER PKG DIR 6 days 21 ea 0RF Coding Level of Care Code Est Pt Level 4 (09223) Diagnoses Chronic obstructive pulmonary disease with acute exacerbation J44.1 COPD type: COPD with acute exacerbation Chronic restrictive lung disease J98.4 Abnormal chest x-ray R93.89 Chronic rhinitis J31.0 Primary insomnia F51.01 Insomnia type: primary Time Spent (min) 17
== END 2023-09-19 15:02 | disposition home or self-care (01) ==
PROVIDERS: PCP Internal Medicine; Visit Provider Hospitalist
DX: J44.1 Chronic obstructive pulmonary disease with (acute) exacerbation (principal); J98.4 Other disorders of lung; R93.89 Abnormal findings on diagnostic imaging of other specified body structures; J31.0 Chronic rhinitis; F51.01 Primary insomnia
CPT/HCPCS: 99214

== ENCOUNTER → 2023-09-19 14:43 | Outpatient (BNVA) | payer MEDICARE, OTHER, SELFPAY | PROVIDERS: PCP Internal Medicine; Visit Provider Hospitalist | DX: J44.1 Chronic obstructive pulmonary disease with (acute) exacerbation (principal); J98.4 Other disorders of lung; J31.0 Chronic rhinitis; R93.89 Abnormal findings on diagnostic imaging of other specified body structures; F51.01 Primary insomnia | CPT/HCPCS: 99212 ==

== ENCOUNTER 2024-03-19 13:59 | Outpatient (AMB) | payer MEDICARE, OTHER, SELFPAY ==
[2024-03-19 14:06] VITALS: PULSE 85; O2SAT 93; BMI 33.0
--- NOTE | 2024-03-19 14:06 | MHC.OFFVIS ---
Vital Signs 03/19/24 14:06 Height 5 ft 4 in Weight 192 lb 7 oz BMI 33.0 Pulse 85 Pulse Source Pulse Oximeter Pulse Oximetry (%) 93 Oxygen Delivery Method Room Air Intake Visit Reasons: hypoxia Artificial Flowers Supervisor Required: No Allergies No Known Allergies [No Known Allergies*] Allergy (Verified 03/19/24 14:08) HPI Comments Details: The patient is an 83-year-old gentleman with known history of CAD in addition to COPD. Apparently back several months ago his admitted to the hospital with pneumonia. His chest x-ray demonstrating some areas of airspace disease. Subsequent x-ray demonstrated clearing of those abnormalities. However, his very pronounced aortic arch. He continues to have significant shortness of breath with minimal activity. He also has some fatigue related to that. Also complains of coughing usually nonproductive in nature. He has been on Breo with good effect. Also has a rescue inhaler that he uses at times. He also has a nebulizer he typically uses once or twice a month. During the visit we did go for 6 minutes walk test in the patient did desaturate down to about 90%. Heart rate state relatively stable around 100. The patient did not qualify for oxygen he was able to ambulate for total of 550 ft. His dyspnea score was around 2 to 3/10. He became more symptomatic when his pulse ox dropped to the low 90s. The patient has not had a recent pulmonary function studies which will plan to do at this time. We also talked about his abnormal chest x-ray depending on his response to his inhalers consider getting a CT scan of the chest. 05/19/2020. The patient is here for pulmonary follow-up visit. Overall he is doing better. He has responded well to the Trelegy inhaler. His shortness of breath has improved. He has not required a short-acting beta agonist. He underwent pulmonary function studies that we personally reviewed in the office. Appears that he does have an obstructive process consistent with COPD. However, he also has a restrictive process. Unfortunately, he has gained around 20-30 lb. He is very upset about this as he does not need much. He is going to looking to online pulmonary rehabilitation in continue with healthy eating. Based on the fact that his breathing studies of improved hold off on a CT scan of the chest at this time. I will repeat his chest x-ray prior to the next visit. 12/17/2020 the patient is here for pulmonary follow-up visit. He still complaining of dyspnea on exertion. Eyoe-pw-gwlvfkti severity. He has also gained weight. He has been trying to lose weight however has been very hard to do so. He stopped going to the gym during the pandemic. Now he has been vaccinated hopefully he will go back to the gym. He has a hard time exercising with the mask on and reassured him that now he is vaccinated he will be able to exercise without 1 as long as he still takes some precautions. We did talk about the Trelegy. He could potentially go on the higher dose but will be additional steroids and I do not believe that this to be a good option for him. Therefore continue with the 100 mcg does. Patient does complaint of nasal congestion and allergies. He has been taking txoe-gag-qyzvmim antihistamines. Will go ahead and start him on Singulair and also he will start nasal sinus rinses at nighttime with the Neti bottle. He was supposed to have a chest x-ray prior to this visit. However he did not have it. His last x-ray was back in December 2019 we personally reviewed demonstrating interval improvement of the interstitial changes. The patient will have in order to get an x-ray done after this visit or sometime afterwards. Will follow up in 6 months. 07/05/2021 the patient is here for a pulmonary follow-up visit. Since we last spoke the patient develops significant sinusitis. His symptoms continued to worsen. He finally was evaluated. He was given a course of antibiotics with partial resolution of the symptoms. He still complains of postnasal drip and cough in addition to significant nasal congestion. The patient had not started the singular. He does have significant allergies. He also has not taking any antihistamines. Therefore, encouraged him to start his anti allergy therapy. He does use nasal therapy. The patient also should be rinsing his nose with saline. in the meantime he continues to Trelegy inhaler. Has been affecting beneficial. He will continue the therapy at This time. The patient did get a chest x-ray back in December 2020 demonstrating no acute disease. Therefore no additional imaging warranted at this time. 01/04/2022 the patient is here for a pulmonary follow-up visit. The patient is complaining of significant daytime drowsiness. He feels like he is falling asleep all the time. He is tear with minimal activity. At the same time has a hard time sleeping. He usually stays up at nighttime. Partly due to the chest congestion and partly because he feels like is going to show can potentially in his sleep. In that gives him concerned and has a hard time sleeping because of that. He has never tried sleep aid. He has been on the trilogy with partial improvement of the symptoms. We did look at his EKG from back in August with a normal QTC. Will go ahead and start him on azithromycin. Hopefully that will improve chest congestion. I did request that he only uses for about a month no more than 2. In the meantime the patient is willing to try a sleep aid. Will start trazodone 1 tablet q.h.s. 1 hour before sleep. If does not enough he can always increase it to 2 tablets. If the patient continues to the chest congestion he also coming for chest x-ray. Otherwise will follow-up in the fall. The patient has any problems prior to his call the office. 04/05/2022 the patient is here for a pulmonary follow-up visit. Overall he is doing well. He responded wellg his mucus burden chronic bronchitis. The mucus is moderate severity. He continues on the Trelegy. Tolerating it well. We did review his last chest x-ray demonstrating no lung active issues although he has significant degenerative back issues. He does have back pain. We talked about alternative his chronic bronchitis. Will start him on Daliresp. for his chronic bronchitis. 09/13/2022 the patient is here for a pulmonary follow-up visit. Overall he is doing about same. He started developing worsening chronic cough. Initially was a little better but then got worse again after with illness. The cough is yellowish in color. Moderate severity. We did try Daliresp during the last visit. However, the patient developed adverse effects with dizziness and therefore he stop the medication. He had done well on azithromycin 3 times a week. We have stopped that in the past. I think it is reasonable to continue the azithromycin at least for 6-8 weeks and then stop it. I am hopeful that once the spring comes in and colds clear up that his symptoms will improve as well. He continues use the oxygen at nighttime. This has been affecting beneficial. He is using at 2 L. Will go ahead and repeat an overnight oximetry on 2 L to make sure that he is getting adequate oxygenation and also to make sure that he is not getting over a treated with oxygen supplementation at this time. 03/19/2024 the patient is here for pulmonary follow-up visit. Overall the patient is doing better. He continues with respiratory therapy. He does state that he does have wheezing in the morning. Typically moderate severity. He does use his rescue inhaler in the does improved. He does have a nebulizer but he does not use it. He does not seen using the Trelegy inhaler with good effect. We did talk about his singular medication. He stop taking it. I do believe he should go back on it specially if it was helping his nighttime and morning symptoms. He is going to try going back on and see if his symptoms improve. If he continues to have wheezing otherwise he will call to the op provide him with further recommendations. She continues use the oxygen at nighttime at 2 L with good effect. [facility] Medical History (Updated 09/19/23 @ 21:18 by Charli Johnson MD) Bronchitis Chronic rhinitis Hyperlipidemia Hypertension Abnormal chest x-ray Chronic restrictive lung disease COPD (chronic obstructive pulmonary disease) CAD (coronary artery disease) Surgical History Hx of cardiac catheterization History of cataract surgery H/O total knee replacement Family History Father No problems noted. Social History Patient Tobacco Use Status: Former Tobacco user Tobacco use type: Cigarette Years Smoked: 30 years Current occupational status: employed and retired Current occupation: rt hand/ self employeed/incubator Review of Systems Const Reports daytime sleepiness and Denies night sweats ENT Denies change in voice, Denies lip swelling, Denies mouth pain, Reports nasal congestion, Reports nasal discharge and Denies tongue swelling Card Denies chest pain and Reports dyspnea on exertion Resp Reports chest congestion, Reports cough, Denies hemoptysis, Denies excessive phlegm production, Reports dyspnea on exertion and Reports wheezing GI Denies abdominal pain Musc Denies no additional complaints Neuro Denies Neuro-related abnormal movements Psych Denies no additional complaints Freddy/Lymph Denies easy bleeding and Denies lymphadenopathy Aller/Immun Denies lip swelling, Denies tongue swelling and Reports wheezing Physical Exam Vital Signs: Last Vital Signs Pulse 85 03/19/24 14:06 Pulse Ox 93 03/19/24 14:06 Oxygen Delivery Method Room Air 03/19/24 14:06 BMI result Body Mass Index 33.0 Const General: alert Eyes Pupils: Equal, round and reactive pupils present Neck Neck: Yes normal visual inspection, Yes full ROM and Yes no lymphadenopathy Chest Chest palpation & inspection: normal inspection of the chest Resp Effort & Inspection: normal respiratory effort and Actively coughing Auscultation: no wheezes and diminished lung sounds Cardio Rate: regular rate Rhythm: regular rhythm Heart sounds: S1 normal heart sound present and S2 normal heart sound present GI Palpation (GI): Soft to palpation and nontender Auscultation: normal bowel sounds Skin General skin exam: rashes and/or lesions noted Neuro Cranial nerves: Yes Equal, round and reactive pupils present Assessment & Plan Assessment & Plan (1) COPD (chronic obstructive pulmonary disease): Code(s): J44.9 - Chronic obstructive pulmonary disease, unspecified Category: Medical Qualifiers: COPD type: COPD with acute exacerbation Qualified Code(s): J44.1 - Chronic obstructive pulmonary disease with (acute) exacerbation (2) Chronic restrictive lung disease: Code(s): J98.4 - Other disorders of lung Category: Medical (3) Abnormal chest x-ray: Code(s): R93.89 - Abnormal findings on diagnostic imaging of other specified body structures Category: Medical (4) Chronic rhinitis: Code(s): J31.0 - Chronic rhinitis Category: Medical (5) Insomnia: Code(s): G47.00 - Insomnia, unspecified Category: Medical Qualifiers: Insomnia type: primary Qualified Code(s): F51.01 - Primary insomnia Plan use nebulizer 2-3 times a day as needed Continue Trelegy 200 nasal rinsing with neti bottle at night restart Singulair start Claritin continue Flonase nasal spray continue oxygen 2L while sleeping F/U 6-8 months Medications: New fluticasone propionate 50 mcg/actuation 2 sprays intranasal DAILY 15.8 mL 11RF 30 days J31.0 - Chronic rhinitis loratadine (Claritin) 10 mg PO DAILY 30 tabs 11RF 30 days J30.2 - Other seasonal allergic rhinitis, J45.909 - Unspecified asthma, uncomplicated Refilled montelukast 10 mg PO DAILY 30 tabs 11RF 30 days J45.909 - Unspecified asthma, uncomplicated Coding Level of Care Code Est Pt Level 4 (37945) Diagnoses Chronic obstructive pulmonary disease with acute exacerbation J44.1 COPD type: COPD with acute exacerbation Chronic restrictive lung disease J98.4 Abnormal chest x-ray R93.89 Chronic rhinitis J31.0 Primary insomnia F51.01 Insomnia type: primary Time Spent (min) 16
== END 2024-03-19 14:28 | disposition home or self-care (01) ==
PROVIDERS: PCP Internal Medicine; Visit Provider Hospitalist
DX: J44.1 Chronic obstructive pulmonary disease with (acute) exacerbation (principal); J98.4 Other disorders of lung; R93.89 Abnormal findings on diagnostic imaging of other specified body structures; J31.0 Chronic rhinitis; F51.01 Primary insomnia
CPT/HCPCS: 99214

== ENCOUNTER → 2024-03-19 13:59 | Outpatient (BNVA) | payer MEDICARE, OTHER, SELFPAY | PROVIDERS: PCP Internal Medicine; Visit Provider Hospitalist | DX: J44.1 Chronic obstructive pulmonary disease with (acute) exacerbation (principal); J98.4 Other disorders of lung; J31.0 Chronic rhinitis; F51.01 Primary insomnia; R93.89 Abnormal findings on diagnostic imaging of other specified body structures | CPT/HCPCS: 99212 ==

== ENCOUNTER 2024-04-11 13:30 | Outpatient (AMB) | payer MEDICARE, OTHER, SELFPAY ==
--- NOTE | 2024-04-11 14:24 | A.OFFPC_ITS ---
Vital Signs 04/11/24 14:27 Height 5 ft 4 in Weight 195 lb 8 oz BMI 33.6 BP 120/70 Blood Pressure Location Rt brachial Position Sitting Respiration 12 Pulse 99 Pulse Source Pulse Oximeter Temp 97.8 F Temp Source Tympanic Pulse Oximetry (%) 94 Oxygen Delivery Method Room Air Intake Visit Reasons: est/persistent cold Intake Note: x1week with cold cough congestion Allergies No Known Allergies [No Known Allergies*] Allergy (Verified 04/11/24 14:32) Medication List - Last Reconciled 04/11/24 by Sonia Moreira, [facility]- albuterol sulfate mg inhalation Q6-8H PRN albuterol sulfate 2.5 mg (3 mL) inhalation Q6H PRN 30 days amlodipine 5 mg PO DAILY atorvastatin 80 mg PO DAILY clopidogrel 75 mg PO DAILY doxazosin 2 mg PO DAILY fluticasone propionate 50 mcg/actuation 2 sprays intranasal DAILY 30 days furosemide 20 mg PO DAILY hydroxyzine HCl 25 mg PO TID PRN loratadine (Claritin) 10 mg PO DAILY 30 days methylprednisolone (Medrol (Bari)) PO PER PKG DIR 6 days metoprolol succinate ER 12.5 mg (1/2 x 25 mg) PO DAILY montelukast 10 mg PO DAILY 30 days nebulizers As directed Oxygen Home Use As directed pantoprazole 40 mg PO DAILY tamsulosin 0.4 mg PO DAILY Trelegy Ellipta 200-62.5-25 mcg (tqrfwceveir-nebgqwmro-bqmpyfia) 1 inh inhalation DAILY NS HPI HPI Comments History of Present Illness Details 84-year-old male with COPD here today wi th his daughter for complaint of a cough. He reports that the cough has been present for several weeks. He has a mild runny nose otherwise he denies any fever, chills, sore throat, chest pain, shortness of breath, swelling in his lower extremities. He has been using Delsym which has short-lived relief. He is tolerating compliant of his inhalers. Reports some relief with the use of the albuterol. He is routinely followed by pulmonology. Exam: Awake alert NAD Sclera and conjunctiva clear bilat Nares with scant yellow drainage on R, turbinates erythematous, no sinus tenderness with palpation bilat TM intact and clear bilat MMM, pharynx WNL RRR, 2/6 murmur LS coarse, congested throughout, paroxysmal cough with deep breathing during the exam, recovered on own without intervention Plan We will treat for COPD exacerbation with doxycycline and prednisone. He should also continue to use his maintenance inhalers and his rescue inhaler as directed. Educated that if his symptoms do not improve or worsen that he should return to the office or to see his zinc plate cutter and consider a chest x-ray at that time. Okay to continue to use the Delsym. This note is constructed using voice recognition software. While every effort has been made to ensure accuracy in grounds foreman, still errors may have been included Sometimes, these errors may affect the content or meaning of the given sentence . Total time spent caring for the patient today was Total time spent caring for the patient today was 30 minutes. This includes time spent before the visit reviewing the chart, time spent during the visit, and time spent after the visit on documentation minutes. [facility] Medical History (Updated 09/19/23 @ 21:18 by Charli Johnson MD) Bronchitis Chronic rhinitis Hyperlipidemia Hypertension Abnormal chest x-ray Chronic restrictive lung disease COPD (chronic obstructive pulmonary disease) CAD (coronary artery disease) Surgical History Hx of cardiac catheterization History of cataract surgery H/O total knee replacement Family History Father No problems noted. Social History Patient Tobacco Use Status: Former Tobacco user Tobacco use type: Cigarette Years Smoked: 30 years Current occupational status: employed and retired Current occupation: rt hand/ self employeed/incubator Physical exam (Primary Care) Vital Signs: Last Vital Signs Temp 97.8 F 04/11/24 14:27 Pulse 99 04/11/24 14:27 Resp 12 04/11/24 14:27 BP 120/70 04/11/24 14:27 Pulse Ox 94 04/11/24 14:27 Oxygen Delivery Method Room Air 04/11/24 14:27 BMI result Body Mass Index 33.6 Tobacco/Smoking Status: Tobacco use Status Patient Tobacco Use Status Former Tobacco user 04/11/24 14:28 Tobacco use type Cigarette 04/11/24 14:28 Assessment and Plan Assessment & Plan (1) COPD (chronic obstructive pulmonary disease): Code(s): J44.9 - Chronic obstructive pulmonary disease, unspecified Qualifiers: COPD type: COPD with acute exacerbation Qualified Code(s): J44.1 - Chronic obstructive pulmonary disease with (acute) exacerbation Medications: New prednisone 20 mg PO DAILY 5 tabs 0RF doxycycline hyclate 100 mg PO BID 7 days 14 caps 0RF Discontinued methylprednisolone (Medrol (Bari)) Discontinued Reason: Patient Completed Course PO PER PKG DIR 6 days 21 ea 0RF Coding Level of Care Code Est Pt Level 4 (96894) Diagnoses Chronic obstructive pulmonary disease with acute exacerbation J44.1 COPD type: COPD with acute exacerbation
[2024-04-11 14:27] VITALS: BP 120/70; PULSE 99; RESP 12; TEMP 36.6; O2SAT 94; BMI 33.6
== END 2024-04-11 14:43 | disposition home or self-care (01) ==
PROVIDERS: PCP Internal Medicine; Visit Provider Nurse Practitioner Family
DX: J44.1 Chronic obstructive pulmonary disease with (acute) exacerbation (principal)

== ENCOUNTER → 2024-04-11 13:30 | Outpatient (BNVA) | payer MEDICARE, OTHER, SELFPAY | PROVIDERS: PCP Internal Medicine | DX: J44.1 Chronic obstructive pulmonary disease with (acute) exacerbation (principal) | CPT/HCPCS: 99212 ==

== ENCOUNTER 2024-07-10 12:34 | Outpatient (AMB) | payer MEDICARE, OTHER, SELFPAY ==
[2024-07-10 12:39] VITALS: BP 110/70; PULSE 98; BMI 33.8
--- NOTE | 2024-07-10 12:39 | MHC.OFFVIS ---
Vital Signs 07/10/24 12:39 Height 5 ft 4 in Weight 196 lb 10.437 oz BMI 33.8 BP 110/70 Blood Pressure Location Lt brachial Position Sitting Pulse 98 Pulse Source Monitor Intake Visit Reasons: 1 year follow up Intake Note: 1 yr f/up Dog Catcher Required: No Accompanied by: Daughter Allergies No Known Allergies [No Known Allergies*] Allergy (Verified 04/11/24 14:32) Medication List - Last Reconciled 07/10/24 by Jamal Gutierrez MD albuterol sulfate mg inhalation Q6-8H PRN albuterol sulfate 2.5 mg (3 mL) inhalation Q6H PRN 30 days amlodipine 5 mg PO DAILY atorvastatin 80 mg PO DAILY clopidogrel 75 mg PO DAILY doxazosin 2 mg PO DAILY doxycycline hyclate 100 mg PO BID 7 days fluticasone propionate 50 mcg/actuation 2 sprays intranasal DAILY 30 days furosemide 20 mg PO DAILY hydroxyzine HCl 25 mg PO TID PRN loratadine (Claritin) 10 mg PO DAILY 30 days metoprolol succinate ER 12.5 mg (1/2 x 25 mg) PO DAILY montelukast 10 mg PO DAILY 30 days nebulizers As directed Oxygen Home Use As directed pantoprazole 40 mg PO DAILY prednisone 20 mg PO DAILY tamsulosin 0.4 mg PO DAILY Trelegy Ellipta 200-62.5-25 mcg (qomwewdllze-rjqwgmrxm-nozjffzv) 1 inh inhalation DAILY NS HPI Comments Details: 84-year-old gentleman here for follow-up. 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. Initially was on aspirin and ticagrelor but developed dyspnea for which she has ticagrelor was changed to Plavix. He did well after that. He was complaining of cold extremities and his beta-rick was decreased with some improvement in symptoms. 07/10/2023: He returns for follow-up. No chest discomfort. He is saying that he ran out of his beta-rick a week ago and he has noticed that when he is walking he is short of breath. He is denying any chest discomfort. No heart failure symptoms. He was taking Toprol-XL 12.5 mg daily which is a very small dose. He previously had issues with beta-rick with cold extremities and was quite distressed by that so we cut the dose and eventually advised him to stop the metoprolol. He said he stopped it but started taking the metoprolol again and then ran out a week ago. His hand and feet are quite warm right now. He is saying that he can tolerate taking metoprolol if required. 07/10/2024: On follow-up today he is denying any chest discomfort. He gets shortness of breath with activities but does not have any orthopnea or PND or any signs of heart failure. Taking medications regularly. Continues to have cold extremities like before. He is saying that this is not as bothersome as it was before. [facility] Medical History (Updated 09/19/23 @ 21:18 by Charli Johnson MD) Bronchitis Chronic rhinitis Hyperlipidemia Hypertension Abnormal chest x-ray Chronic restrictive lung disease COPD (chronic obstructive pulmonary disease) CAD (coronary artery disease) Surgical History Hx of cardiac catheterization History of cataract surgery H/O total knee replacement Family History Father No problems noted. Social History Patient Tobacco Use Status: Former Tobacco user Tobacco use type: Cigarette Years Smoked: 30 years Current occupational status: employed and retired Current occupation: rt hand/ self employeed/incubator Review of Systems Const Denies chills, Denies fatigue, Denies fever(s), Denies frequent falls, Denies weakness, Denies weight gain and Denies weight loss ENT Denies dizziness Card Denies chest pain, Denies leg edema, Denies lightheadedness, Denies palpitations, Denies dyspnea and Denies dyspnea on exertion Resp Denies cough, Denies dyspnea and Denies dyspnea on exertion GI Denies hematochezia Musc Denies abnormal gait, Denies muscle weakness, Denies numbness, Denies radiating pain into limb and Denies tingling Neuro Denies abnormal gait, Denies dizziness, Denies frequent falls, Denies numbness, Denies tingling and Denies weakness Endo Denies fatigue and Denies palpitations Physical Exam Vital Signs: Last Vital Signs Pulse 98 07/10/24 12:39 BP 110/70 12/18/24 12:39 BMI result Body Mass Index 33.8 GENERAL APPEARANCE: in no acute distress, well developed, well nourished. NECK/THYROID: no carotid bruit, no jugular venous distention. SKIN: no suspicious lesions, warm and dry. HEART: no murmurs, regular rate and rhythm, S1, S2 normal. LUNGS: clear to auscultation bilaterally. ABDOMEN: normal, bowel sounds present, soft, nontender, nondistended. EXTREMITIES: no clubbing, cyanosis, or edema. PERIPHERAL PULSES: equal. NEUROLOGIC: nonfocal, alert and oriented. PSYCH: mood/affect full range. Office Procedures EKG Details: Sinus rhythm 98 beats per minute, first-degree AV block with NC duration 256 milliseconds. Leftward axis, inferior infarct, right bundle-branch block, QTC 462 milliseconds. [id number], Complete Assessment & Plan Assessment & Plan (1) Stable angina: Code(s): I20.8 - Other forms of angina pectoris Category: Medical (2) Hypertension: Code(s): I10 - Essential (primary) hypertension Category: Medical Plan [age] gentleman here for follow-up. He has history of bronchial asthma and follows with pulmonology. He also had previous coronary disease and PCI. He is taking Plavix monotherapy. He continues to take low-dose metoprolol. 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 He has some dyspnea with activities. We will assess LV with echocardiography. Thank you for allowing me to participate in the care of your patient. Please feel free to contact me if you have any questions. Orders: Orders CA echo transthoracic complete Today I20.8 - Other forms of angina pectoris Coding Level of Care Code Est Pt Level 4 (29894) Diagnoses Stable angina I20.8 Hypertension I10 CPT Codes EKG - CPT: 84158-Juvykikxdtcqihwsg, Complete ([id number])
== END 2024-07-10 13:11 | disposition home or self-care (01) ==
PROVIDERS: PCP Internal Medicine; Visit Provider Internal Medicine Cardiovascular Disease
DX: I20.89 Other forms of angina pectoris (principal); I10 Essential (primary) hypertension
CPT/HCPCS: 93010; 99214

== ENCOUNTER → 2024-07-10 12:34 | Outpatient (BNVA) | payer MEDICARE, OTHER, SELFPAY | PROVIDERS: PCP Internal Medicine; Visit Provider Internal Medicine Cardiovascular Disease | DX: I20.89 Other forms of angina pectoris (principal); I10 Essential (primary) hypertension | CPT/HCPCS: 93005; 99212 ==

== ENCOUNTER 2024-07-25 08:19 | Outpatient (REF) | payer MEDICARE, OTHER, SELFPAY ==
[2024-07-25 10:46] LABS: MANUAL DIFF FLAG NO
[2024-07-25 11:00] LABS: Appearance Urine Clear; Color Urine Dark Yellow; Glucose Urine UA 100 mg/dL (Negative); Leukocyte Esterase Urine Negative (Negative); Nitrite Urine Negative (Negative); Urine Blood Negative (Negative); Urine Ketones Negative (Negative); Urine Protein Negative (Neg-Trace)
[2024-07-25 11:07] LABS: Basophils Absolute Auto 0.1 X10*3/uL (0.0-0.2); Basophils Percent Auto 0.7 % (0-2); Eosinophils Absolute Auto 0.2 X10*3/uL (0.0-0.4); Eosinophils Percent Auto 1.5 % (0-4); Hematocrit 46.1 % (42.0-52.0); Hemoglobin 14.9 g/dl (14.0-18.0); Imm Gran Abs Auto 0.03 X10*3/uL (0.00-0.03); Imm Gran Pct Auto 0.3 % (0.0-0.4); Lymphocytes Absolute Auto 2.3 X10*3/uL (1.2-4.9); Lymphocytes Percent Auto 23.8 % (20-40); Mean Corpuscular HGB Conc 32.3 g/dl (31.0-36.0); Mean Corpuscular Hemoglobin 28.5 pg (27.0-33.0); Mean Corpuscular Volume 88.3 fL (80.0-98.0); Mean Platelet Volume 12.8 fL (9.4-12.4); Monocytes Absolute Auto 0.9 X10*3/uL (0.1-1.2); Monocytes Percent Auto 9.1 % (2-11); Neutrophils Absolute Auto 6.3 x10*3/uL (2.0-8.3); Neutrophils Percent Auto 64.6 % (45-73); Platelet Count 185 X10*3/uL (160-400); Red Blood Count 5.22 X10*6/uL (4.60-5.80); Red Cell Distribution Width 13.2 % (11.0-16.0); White Blood Count 9.8 X10*3/uL (4.8-10.8)
[2024-07-25 11:13] LABS: Alanine Aminotransferase 42 U/L (0-40); Albumin Level 3.7 g/dL (3.5-5.0); Alkaline Phosphatase 85 U/L (39-117); Anion Gap 11 (12-20); Aspartate Amino Transferase 43 U/L (5-37); Bilirubin Total 1.8 mg/dL (0.0-1.0); Blood Urea Nitrogen 14 mg/dL (9-16); Calcium 8.6 mg/dL (8.4-10.2); Carbon Dioxide 26 mmol/L (22-29); Chloride 105 mmol/L (96-108); Cholesterol 86 mg/dL (<200); Estimated Glomerular Filt Rate 57; Glucose Fasting 191 mg/dL (60-99); HDL Cholesterol 33 mg/dL (>40); LDL Cholesterol Calculated 36 mg/dL (<100); Potassium 3.4 mmol/L (3.3-5.1); Sodium 139 mmol/L (135-145); Triglycerides 87 mg/dL (<150)
[2024-07-25 11:14] LABS: Estimated Average Glucose 180 mg/dL; Hemoglobin A1C 240.5192 umol/L; Hemoglobin A1c % 7.9 % (<6.0); Total Hemoglobin (HGBA1C) 3828.0542 umol/L
[2024-07-25 11:24] LABS: Creatinine Urine 117.99 mg/dL; Microalbum/Creatinine Ratio Ur 20.3 ug/mg cr (<30)
[2024-07-25 11:28] LABS: Vitamin D 25-OH Total 35.1 ng/mL (>30)
[2024-07-25 11:29] LABS: Prostate Specific Antigen 1.55 ng/mL (<0.05-4.0)
== END 2024-07-25 08:20 | disposition home or self-care (01) ==
LOC: HO.WFDLDS 08:19
PROVIDERS: Visit Provider Internal Medicine
DX: I10 Essential (primary) hypertension (principal)
CPT/HCPCS: 36415; 80053; 80061; 81003; 82043; 82306; 82570; 83036; 84153; 85025

== ENCOUNTER → 2024-07-25 13:45 | Outpatient (REF) | payer MEDICARE, OTHER, SELFPAY ==
--- NOTE | 2024-07-25 13:48 | CA_ITS ---
Transthoracic Echocardiogram Patient (Last, First, Middle): Gene Miguel P Gender: Male Date of : 1940 Age: 84 Procedure Date: 07/25/2024 Procedure Type: Transthoracic Echocardiogram Location: OP Height: 162.56 cm Weight: 88.91 kg BSA: 1.94 m2 Heart Rate: 98 bpm BP: 110 / 70 mmHg Wet Process Technician: SB Referring MD: Jamal Gutierrez MD Bunker Worker: Munir Crenshaw MD Symptoms: I20.8 - Other forms of angina pectoris Study Quality: Adequate ECG Rhythm: Sinus Conclusions: - 1. Mildly reduced LV ejection fraction 45-50% with moderate LVH 2. Moderately reduced right ventricular systolic function 3. Cardiac valvular Dopplers within normal limits 4. Mildly dilated ascending aorta at 3.9 cm 5. Normal measured RV systolic pressure 6. No gross pericardial effusion Findings Left Ventricle Normal left ventricular cavity size. There is moderately increased left ventricular wall thickness. The left ventricular systolic function is mildly decreased. The visually estimated ejection fraction is between 45-50%. Diastolic function is indeterminate on the basis of available data. E/E prime ratio is between 8 and 15 consistent with indeterminate filling pressures. Right Ventricle Normal right ventricular cavity size. There is moderately decreased right ventricular systolic function. Atria The left atrium is normal in size. Interatrial shunt cannot be excluded. The right atrium is normal in size. Aortic Valve The aortic valve structure and function is likely normal. There is no aortic valve stenosis. There is no aortic valve regurgitation. Mitral Valve Normal mitral valve structure and function. There is trace mitral valve regurgitation. There is no mitral valve stenosis. Pulmonic Valve The pulmonic valve was not well visualized. Tricuspid Valve Likely normal tricuspid valve structure and function. There is mild tricuspid valve regurgitation. The right ventricular systolic pressure is normal. The right ventricular systolic pressure is 31 mmHg. Normal right atrial pressure. There is no evidence of pulmonary hypertension. Great Vessels The pulmonary artery was not well visualized. There is mild dilatation of the ascending aorta measuring 3.90 cm. Small plaque is seen in the sino tubular ridge. Venous The inferior vena cava is normal in size and collapses greater than 50% with inspiration. Pericardium/Pleural There is no evidence of pericardial effusion. Prior Study Comparison Changes noted compared to prior study dated: 01/16/2020. LV systolic function is mildly depressed on this study. There is moderate LVH Measurements 2D Linear Measurements IVSd: 1.54 0.6-0.9/0.6-1.0 cm LVIDd: 3.67 3.9-5.3/4.2-5.9 cm LVIDd Index: 1.89 2.4-3.2/2.2-3.1 cm/m2 LVIDs: 2.43 2.0-3.6 cm LVPWd: 1.49 0.7-1.1 cm LA Diam: 3.80 2.7-3.8/3.0-4.0 cm LAIDs Index: 1.96 1.5-2.3 cm/m2 LV Mass: 261.39 67-162/88-224 g LV Mass Index: 134.73 43-95/49-115 g/m2 LVOT Diam: 2.20 3.0+(-)1.3 cm 2D Systolic Function EF 4C: 43.90 >55% EF 2C: 48.90 >55% EF BiP: 47.10 >55% Mitral Valve MV Pk E: 1.15 Aortic Valve AoV Pk Rajan: 1.06 AoV Pk Grad: 4.00 CLAUDIA: 2.33 LVOT LVOT Pk Rajan: 0.71 LVOT Mn Rajan: 0.46 LVOT VTI: 0.13 LVOT Pk Grad: 2.00 LVOT Mn Grad: 1.00 LVOT Diam: 2.20 LVOT Area: 3.80 Diastolic Function MV Pk E: 1.15 Right Ventricle TAPSE (mm): 10.70 TVS' Rajan: 8.00 Tricuspid Valve TR Pk Rajan: 2.65 TR Pk Grad: 28.00 RA Press: 3.00 RVSP: 31.00 Great Vessels Aorta Sinus of Valsalva: 3.60 2.0-3.5 cm Ao Asc: 3.90 2.1-3.4 cm Pulmonary Valve PV Pk Rajan: 0.90 Peak PV Grad: 3.00 Updated in Other Vendor System with Status of Final Munir Crenshaw MD electronically signed on 07/25/2024 3:51:00 PM with status of Final
== END ==
LOC: HO.CARD 13:45
PROVIDERS: PCP Internal Medicine; Visit Provider Internal Medicine Cardiovascular Disease
DX: I20.89 Other forms of angina pectoris (principal)
CPT/HCPCS: 93306

== ENCOUNTER → 2024-07-25 13:48 | Outpatient (BNV) | payer MEDICARE, OTHER, SELFPAY | PROVIDERS: PCP Internal Medicine; Visit Provider Internal Medicine Cardiovascular Disease | DX: I36.1 Nonrheumatic tricuspid (valve) insufficiency (principal) | CPT/HCPCS: 93306 ==

== ENCOUNTER 2024-10-08 11:09 | Outpatient (AMB) | payer MEDICARE, OTHER, SELFPAY ==
[2024-10-08 11:12] VITALS: BP 128/74; PULSE 82; O2SAT 92; BMI 33.7
--- NOTE | 2024-10-08 11:12 | MHC.OFFVIS ---
Vital Signs 10/08/24 11:12 Height 5 ft 4 in Weight 196 lb 3.382 oz BMI 33.7 BP 128/74 Blood Pressure Location Lt brachial Position Sitting Pulse 82 Pulse Source Pulse Oximeter Pulse Oximetry (%) 92 Oxygen Delivery Method Room Air Intake Visit Reasons: cough Allergies No Known Allergies [No Known Allergies*] Allergy (Verified 10/08/24 11:16) HPI Comments Details: The patient is an 84-year-old gentleman with known history of CAD in addition to COPD. Apparently back several months ago his admitted to the hospital with pneumonia. His chest x-ray demonstrating some areas of airspace disease. Subsequent x-ray demonstrated clearing of those abnormalities. However, his very pronounced aortic arch. He continues to have significant shortness of breath with minimal activity. He also has some fatigue related to that. Also complains of coughing usually nonproductive in nature. He has been on Breo with good effect. Also has a rescue inhaler that he uses at times. He also has a nebulizer he typically uses once or twice a month. During the visit we did go for 6 minutes walk test in the patient did desaturate down to about 90%. Heart rate state relatively stable around 100. The patient did not qualify for oxygen he was able to ambulate for total of 550 ft. His dyspnea score was around 2 to 3/10. He became more symptomatic when his pulse ox dropped to the low 90s. The patient has not had a recent pulmonary function studies which will plan to do at this time. We also talked about his abnormal chest x-ray depending on his response to his inhalers consider getting a CT scan of the chest. 05/19/2020. The patient is here for pulmonary follow-up visit. Overall he is doing better. He has responded well to the Trelegy inhaler. His shortness of breath has improved. He has not required a short-acting beta agonist. He underwent pulmonary function studies that we personally reviewed in the office. Appears that he does have an obstructive process consistent with COPD. However, he also has a restrictive process. Unfortunately, he has gained around 20-30 lb. He is very upset about this as he does not need much. He is going to looking to online pulmonary rehabilitation in continue with healthy eating. Based on the fact that his breathing studies of improved hold off on a CT scan of the chest at this time. I will repeat his chest x-ray prior to the next visit. 12/17/2020 the patient is here for pulmonary follow-up visit. He still complaining of dyspnea on exertion. Regp-[id number] severity. He has also gained weight. He has been trying to lose weight however has been very hard to do so. He stopped going to the gym during the pandemic. Now he has been vaccinated hopefully he will go back to the gym. He has a hard time exercising with the mask on and reassured him that now he is vaccinated he will be able to exercise without 1 as long as he still takes some precautions. We did talk about the Trelegy. He could potentially go on the higher dose but will be additional steroids and I do not believe that this to be a good option for him. Therefore continue with the 100 mcg does. Patient does complaint of nasal congestion and allergies. He has been taking [id number] antihistamines. Will go ahead and start him on Singulair and also he will start nasal sinus rinses at nighttime with the Neti bottle. He was supposed to have a chest x-ray prior to this visit. However he did not have it. His last x-ray was back in December 2019 we personally reviewed demonstrating interval improvement of the interstitial changes. The patient will have in order to get an x-ray done after this visit or sometime afterwards. Will follow up in 6 months. 07/05/2021 the patient is here for a pulmonary follow-up visit. Since we last spoke the patient develops significant sinusitis. His symptoms continued to worsen. He finally was evaluated. He was given a course of antibiotics with partial resolution of the symptoms. He still complains of postnasal drip and cough in addition to significant nasal congestion. The patient had not started the singular. He does have significant allergies. He also has not taking any antihistamines. Therefore, encouraged him to start his anti allergy therapy. He does use nasal therapy. The patient also should be rinsing his nose with saline. in the meantime he continues to Trelegy inhaler. Has been affecting beneficial. He will continue the therapy at This time. The patient did get a chest x-ray back in December 2020 demonstrating no acute disease. Therefore no additional imaging warranted at this time. 01/04/2022 the patient is here for a pulmonary follow-up visit. The patient is complaining of significant daytime drowsiness. He feels like he is falling asleep all the time. He is tear with minimal activity. At the same time has a hard time sleeping. He usually stays up at nighttime. Partly due to the chest congestion and partly because he feels like is going to show can potentially in his sleep. In that gives him concerned and has a hard time sleeping because of that. He has never tried sleep aid. He has been on the trilogy with partial improvement of the symptoms. We did look at his EKG from back in August with a normal QTC. Will go ahead and start him on azithromycin. Hopefully that will improve chest congestion. I did request that he only uses for about a month no more than 2. In the meantime the patient is willing to try a sleep aid. Will start trazodone 1 tablet q.h.s. 1 hour before sleep. If does not enough he can always increase it to 2 tablets. If the patient continues to the chest congestion he also coming for chest x-ray. Otherwise will follow-up in the fall. The patient has any problems prior to his call the office. 04/05/2022 the patient is here for a pulmonary follow-up visit. Overall he is doing well. He responded wellg his mucus burden chronic bronchitis. The mucus is moderate severity. He continues on the Trelegy. Tolerating it well. We did review his last chest x-ray demonstrating no lung active issues although he has significant degenerative back issues. He does have back pain. We talked about alternative his chronic bronchitis. Will start him on Daliresp. for his chronic bronchitis. 09/13/2022 the patient is here for a pulmonary follow-up visit. Overall he is doing about same. He started developing worsening chronic cough. Initially was a little better but then got worse again after with illness. The cough is yellowish in color. Moderate severity. We did try Daliresp during the last visit. However, the patient developed adverse effects with dizziness and therefore he stop the medication. He had done well on azithromycin 3 times a week. We have stopped that in the past. I think it is reasonable to continue the azithromycin at least for 6-8 weeks and then stop it. I am hopeful that once the spring comes in and colds clear up that his symptoms will improve as well. He continues use the oxygen at nighttime. This has been affecting beneficial. He is using at 2 L. Will go ahead and repeat an overnight oximetry on 2 L to make sure that he is getting adequate oxygenation and also to make sure that he is not getting over a treated with oxygen supplementation at this time. 03/19/2024 the patient is here for pulmonary follow-up visit. Overall the patient is doing better. He continues with respiratory therapy. He does state that he does have wheezing in the morning. Typically moderate severity. He does use his rescue inhaler in the does improved. He does have a nebulizer but he does not use it. He does not seen using the Trelegy inhaler with good effect. We did talk about his singular medication. He stop taking it. I do believe he should go back on it specially if it was helping his nighttime and morning symptoms. He is going to try going back on and see if his symptoms improve. If he continues to have wheezing otherwise he will call to the op provide him with further recommendations. She continues use the oxygen at nighttime at 2 L with good effect. 10/08/2024 the patient is here for a pulmonary follow-up visit. He still struggling with significant chronic rhinitis. Can not breathe through his nose. Making it very uncomfortable. Moderate severity. He was seeing Allergy in the past but subsequently the sr. social media & mobile manager retired. Will go ahead and send him to a different allergies at this time. Unfortunately, the patient has been using Afrin for some time and explained to him the issues with the physical dependence with the Afrin with rebound nasal congestion that occurs once he stops using it. Therefore he needs to sterile way from the Afrin. Will go ahead and provide him with the Neti bottle that he can do at nighttime. He will continue using the fluticasone nasal spray and would add Astelin nasal spray and he can use ipratropium nasal spray as needed. The patient did agree to try the Neti bottle although he was not reluctant. He understands he needs to use distilled water only for it and he can buy the packets. I did provide him with a bottle. In regards of his inhalers the Trelegy inhaler [place] been working fine. And he can use his rescue inhaler as needed. He did have a chest x-ray back in 06/12/2024 [facility] which was read as without any acute disease which is reassuring. He is also following closely with Cardiology. [facility] Medical History (Updated 10/08/24 @ 21:37 by Charli Johnson MD) Bronchitis Chronic rhinitis Hyperlipidemia Hypertension Abnormal chest x-ray Chronic restrictive lung disease COPD (chronic obstructive pulmonary disease) CAD (coronary artery disease) Surgical History Hx of cardiac catheterization History of cataract surgery H/O total knee replacement Family History Father No problems noted. Social History Patient Tobacco Use Status: Former Tobacco user Tobacco use type: Cigarette Years Smoked: 30 years Current occupational status: employed and retired Current occupation: rt hand/ self employeed/incubator Review of Systems Const Reports daytime sleepiness and Denies night sweats ENT Denies change in voice, Denies lip swelling, Denies mouth pain, Reports nasal congestion, Reports nasal discharge, Reports nasal obstruction, Reports post nasal drip, Reports sinus pressure and Denies tongue swelling Card Denies chest pain and Reports dyspnea on exertion Resp Reports chest congestion, Reports cough, Denies hemoptysis, Denies excessive phlegm production, Reports dyspnea on exertion and Reports wheezing GI Denies abdominal pain Musc Denies no additional complaints Neuro Denies Neuro-related abnormal movements Psych Denies no additional complaints Freddy/Lymph Denies easy bleeding and Denies lymphadenopathy Aller/Immun Denies lip swelling, Denies tongue swelling and Reports wheezing Physical Exam Vital Signs: Last Vital Signs Pulse 82 10/08/24 11:12 BP 128/74 10/08/24 11:12 Pulse Ox 92 10/08/24 11:12 Oxygen Delivery Method Room Air 10/08/24 11:12 BMI result Body Mass Index 33.7 Const General: alert HEENT General nose exam: Abnormal mucous membranes and turbinates present erythematous and other (dry) Eyes Pupils: Equal, round and reactive pupils present Neck Neck: Yes normal visual inspection, Yes full ROM and Yes no lymphadenopathy Chest Chest palpation & inspection: normal inspection of the chest Resp Effort & Inspection: normal respiratory effort Auscultation: no wheezes and diminished lung sounds Cardio Rate: regular rate Rhythm: regular rhythm Heart sounds: S1 normal heart sound present and S2 normal heart sound present GI Palpation (GI): Soft to palpation and nontender Auscultation: normal bowel sounds Skin General skin exam: rashes and/or lesions noted Neuro Cranial nerves: Yes Equal, round and reactive pupils present Assessment & Plan Assessment & Plan (1) COPD (chronic obstructive pulmonary disease): Code(s): J44.9 - Chronic obstructive pulmonary disease, unspecified Category: Medical Qualifiers: COPD type: COPD with acute exacerbation Qualified Code(s): J44.1 - Chronic obstructive pulmonary disease with (acute) exacerbation (2) Chronic restrictive lung disease: Code(s): J98.4 - Other disorders of lung Category: Medical (3) Abnormal chest x-ray: Code(s): R93.89 - Abnormal findings on diagnostic imaging of other specified body structures Category: Medical (4) Chronic rhinitis: Comment: worsened by Afrin Code(s): J31.0 - Chronic rhinitis Category: Medical (5) Insomnia: Code(s): G47.00 - Insomnia, unspecified Category: Medical Qualifiers: Insomnia type: primary Qualified Code(s): F51.01 - Primary insomnia Plan use nebulizer 2-3 times a day as needed Continue Trelegy 200 nasal rinsing with neti bottle at night contiune Singulair contiune Claritin Add Astelin nasal spray continue Ipratropium nasal spray continue Flonase nasal spray No Afrin continue oxygen 2L while sleeping F/U 6-8 months Medications: New azelastine administer into each nostril 2 sprays intranasal BID 30 days 30 mL 6RF montelukast 10 mg PO DAILY 30 days 30 tabs 11RF J45.909 - Unspecified asthma, uncomplicated azelastine administer into each nostril 2 sprays intranasal BID 90 mL 3RF 90 days montelukast 10 mg PO DAILY 90 tabs 3RF 90 days J45.909 - Unspecified asthma, uncomplicated Changed From fluticasone propionate 50 mcg/actuation 2 sprays intranasal DAILY 30 days 15.8 mL 11RF J31.0 - Chronic rhinitis To fluticasone propionate 50 mcg/actuation 2 sprays intranasal DAILY 3 ea 3RF 90 days J31.0 - Chronic rhinitis From loratadine (Claritin) 10 mg PO DAILY 30 days 30 tabs 11RF J30.2 - Other seasonal allergic rhinitis, J45.909 - Unspecified asthma, uncomplicated To loratadine (Claritin) 10 mg PO DAILY 90 tabs 3RF 90 days J30.2 - Other seasonal allergic rhinitis, J45.909 - Unspecified asthma, uncomplicated Refilled fluticasone propionate 50 mcg/actuation 2 sprays intranasal DAILY 30 days 15.8 mL 11RF J31.0 - Chronic rhinitis loratadine (Claritin) 10 mg PO DAILY 30 days 30 tabs 11RF J30.2 - Other seasonal allergic rhinitis, J45.909 - Unspecified asthma, uncomplicated Coding Level of Care Code Est Pt Level 4 (24047) Complex EM visit Add On G2211 Diagnoses Chronic obstructive pulmonary disease with acute exacerbation J44.1 COPD type: COPD with acute exacerbation Chronic restrictive lung disease J98.4 Abnormal chest x-ray R93.89 Chronic rhinitis J31.0 Primary insomnia F51.01 Insomnia type: primary Time Spent (min) 17
== END 2024-10-08 11:45 | disposition home or self-care (01) ==
LOC: HO.HPS 11:10
PROVIDERS: PCP Internal Medicine; Visit Provider Hospitalist
DX: J44.1 Chronic obstructive pulmonary disease with (acute) exacerbation (principal); J98.4 Other disorders of lung; R93.89 Abnormal findings on diagnostic imaging of other specified body structures; J31.0 Chronic rhinitis; F51.01 Primary insomnia
CPT/HCPCS: 99214; G2211

== ENCOUNTER → 2024-10-08 11:09 | Outpatient (BNVA) | payer MEDICARE, OTHER, SELFPAY | PROVIDERS: PCP Internal Medicine; Visit Provider Hospitalist | DX: J44.1 Chronic obstructive pulmonary disease with (acute) exacerbation (principal); J98.4 Other disorders of lung; J31.0 Chronic rhinitis; R93.89 Abnormal findings on diagnostic imaging of other specified body structures; F51.01 Primary insomnia; Z87.891 Personal history of nicotine dependence | CPT/HCPCS: 99212 ==

== ENCOUNTER 2025-06-26 10:55 | Outpatient (AMB) | payer MEDICARE, OTHER, SELFPAY ==
[2025-06-26 11:02] VITALS: BP 138/78; PULSE 100; O2SAT 93; BMI 35.0
--- NOTE | 2025-06-26 11:02 | A.OFFVIS_ITS ---
Vital Signs 06/26/25 11:02 Height 5 ft 4 in Weight 203 lb 14.841 oz BMI 35.0 BP 138/78 Blood Pressure Location Lt brachial Position Sitting Pulse 100 Pulse Source Pulse Oximeter Pulse Oximetry (%) 93 Oxygen Delivery Method Room Air Intake Visit Reasons: ongoing sob and congestion after treatment Sourcing Assistant Required: No Allergies No Known Allergies (No Known Allergies*) Allergy (Verified 06/26/25 11:05) HPI Comments Details: The patient is an 85-year-old gentleman with known history of CAD in addition to COPD. Apparently back several months ago his admitted to the hospital with pneumonia. His chest x-ray demonstrating some areas of airspace disease. Subsequent x-ray demonstrated clearing of those abnormalities. However, his very pronounced aortic arch. He continues to have significant shortness of breath with minimal activity. He also has some fatigue related to that. Also complains of coughing usually nonproductive in nature. He has been on Breo with good effect. Also has a rescue inhaler that he uses at times. He also has a nebulizer he typically uses once or twice a month. During the visit we did go for 6 minutes walk test in the patient did desaturate down to about 90%. Heart rate state relatively stable around 100. The patient did not qualify for oxygen he was able to ambulate for total of 550 ft. His dyspnea score was around 2 to 3/10. He became more symptomatic when his pulse ox dropped to the low 90s. The patient has not had a recent pulmonary function studies which will plan to do at this time. We also talked about his abnormal chest x-ray depending on his response to his inhalers consider getting a CT scan of the chest. 05/19/2020. The patient is here for pulmonary follow-up visit. Overall he is doing better. He has responded well to the Trelegy inhaler. His shortness of breath has improved. He has not required a short-acting beta agonist. He unde rwent pulmonary function studies that we personally reviewed in the office. Appears that he does have an obstructive process consistent with COPD. However, he also has a restrictive process. Unfortunately, he has gained around 20-30 lb. He is very upset about this as he does not need much. He is going to looking to online pulmonary rehabilitation in continue with healthy eating. Based on the fact that his breathing studies of improved hold off on a CT scan of the chest at this time. I will repeat his chest x-ray prior to the next visit. 12/17/2020 the patient is here for pulmonary follow-up visit. He still complaining of dyspnea on exertion. Onaj-je-lfutduck severity. He has also gained weight. He has been trying to lose weight however has been very hard to do so. He stopped going to the gym during the pandemic. Now he has been vaccinated hopefully he will go back to the gym. He has a hard time exercising with the mask on and reassured him that now he is vaccinated he will be able to exercise without 1 as long as he still takes some precautions. We did talk about the Trelegy. He could potentially go on the higher dose but will be additional steroids and I do not believe that this to be a good option for him. Therefore continue with the 100 mcg does. Patient does complaint of nasal congestion and allergies. He has been taking elys-njv-gpevlyx antihistamines. Will go ahead and start him on Singulair and also he will start nasal sinus rinses at nighttime with the Neti bottle. He was supposed to have a chest x-ray prior to this visit. However he did not have it. His last x-ray was back in December 2019 we personally reviewed demonstrating interval improvement of the interstitial changes. The patient will have in order to get an x-ray done after this visit or sometime afterwards. Will follow up in 6 months. 07/05/2021 the patient is here for a pulmonary follow-up visit. Since we last spoke the patient develops significant sinusitis. His symptoms continued to worsen. He finally was evaluated. He was given a course of antibiotics with partial resolution of the symptoms. He still complains of postnasal drip and cough in addition to significant nasal congestion. The patient had not started the singular. He does have significant allergies. He also has not taking any antihistamines. Therefore, encouraged him to start his anti allergy therapy. He does use nasal therapy. The patient also should be rinsing his nose with saline. in the meantime he continues to Trelegy inhaler. Has been affecting beneficial. He will continue the therapy at This time. The patient did get a chest x-ray back in December 2020 demonstrating no acute disease. Therefore no additional imaging warranted at this time. 01/04/2022 the patient is here for a pulmonary follow-up visit. The patient is complaining of significant daytime drowsiness. He feels like he is falling asleep all the time. He is tear with minimal activity. At the same time has a hard time sleeping. He usually stays up at nighttime. Partly due to the chest congestion and partly because he feels like is going to show can potentially in his sleep. In that gives him concerned and has a hard time sleeping because of that. He has never tried sleep aid. He has been on the trilogy with partial improvement of the symptoms. We did look at his EKG from back in August with a normal QTC. Will go ahead and start him on azithromycin. Hopefully that will improve chest congestion. I did request that he only uses for about a month no more than 2. In the meantime the patient is willing to try a sleep aid. Will start trazodone 1 tablet q.h.s. 1 hour before sleep. If does not enough he can always increase it to 2 tablets. If the patient continues to the chest congestion he also coming for chest x-ray. Otherwise will follow-up in the fall. The patient has any problems prior to his call the office. 04/05/2022 the patient is here for a pulmonary follow-up visit. Overall he is doing well. He responded wellg his mucus burden chronic bronchitis. The mucus is moderate severity. He continues on the Trelegy. Tolerating it well. We did review his last chest x-ray demonstrating no lung active issues although he has significant degenerative back issues. He does have back pain. We talked about alternative his chronic bronchitis. Will start him on Daliresp. for his chronic bronchitis. 09/13/2022 the patient is here for a pulmonary follow-up visit. Overall he is doing about same. He started developing worsening chronic cough. I nitially was a little better but then got worse again after with illness. The cough is yellowish in color. Moderate severity. We did try Daliresp during the last visit. However, the patient developed adverse effects with dizziness and therefore he stop the medication. He had done well on azithromycin 3 times a week. We have stopped that in the past. I think it is reasonable to continue the azithromycin at least for 6-8 weeks and then stop it. I am hopeful that once the spring comes in and colds clear up that his symptoms will improve as well. He continues use the oxygen at nighttime. This has been affecting beneficial. He is using at 2 L. Will go ahead and repeat an overnight oximetry on 2 L to make sure that he is getting adequate oxygenation and also to make sure that he is not getting over a treated with oxygen supplementation at this time. 03/19/2024 the patient is here for pulmonary follow-up visit. Overall the patient is doing better. He continues with respiratory therapy. He does state that he does have wheezing in the morning. Typically moderate severity. He does use his rescue inhaler in the does improved. He does have a nebulizer but he does not use it. He does not seen using the Trelegy inhaler with good effect. We did talk about his singular medication. He stop taking it. I do believe he should go back on it specially if it was helping his nighttime and morning symptoms. He is going to try going back on and see if his symptoms improve. If he continues to have wheezing otherwise he will call to the op provide him with further recommendations. She continues use the oxygen at nighttime at 2 L with good effect. 10/08/2024 the patient is here for a pulmonary follow-up visit. He still struggling with significant chronic rhinitis. Can not breathe through his nose. Making it very uncomfortable. Moderate severity. He was seeing Allergy in the past but subsequently the senior materials analyst retired. Will go ahead and send him to a different allergies at this time. Unfortunately, the patient has been using Afrin for some time and explained to him the issues with the physical dependence with the Afrin with rebound nasal congestion that occurs once he stops using it. Therefore he needs to sterile way from the Afrin. Will go ahead and provide him with the Neti bottle that he can do at nighttime. He will continue using the fluticasone nasal spray and would add Astelin nasal spray and he can use ipratropium nasal spray as needed. The patient did agree to try the Neti bottle although he was not reluctant. He understands he needs to use distilled water only for it and he can buy the packets. I did provide him with a bottle. In regards of his inhalers the Trelegy inhaler Shannon been working fine. And he can use his rescue inhaler as needed. He did have a chest x-ray back in 06/12/2024 [facility] which was read as without any acute disease which is reassuring. He is also following closely with Cardiology. 06/26/2025 the patient is here for sick visit. He has been complaining of worsening cough chest congestion in the morning. Moderate severity. Significant phlegm. Has a hard time breathing. Also been noticing some hoarseness. Does have evidence of postnasal drip likely a component of his issue chronic sinusitis in differential. He has been using nasal sprays with some relief. Lung exam seems to be pretty clear. Will go ahead and start him on doxycycline to treat him for both sinusitis and also bronchitis. The patient also will continue with his Trelegy and nebulizer therapy. We talked about sleeping elevated to minimize on the pooling of secretions. In the meantime the patient will monitor closely symptoms if he is not any better in the next week or so he is going to come in for chest x-ray and a sputum sample. He has some thrush in his mouth will treat him for some Diflucan. The patient may benefit from getting an ENT eval specially if the hoarseness persists to look for a vocal cord paralysis or abnormality. [facility] Medical History (Updated 06/26/25 @ 11:33 by Charli Johnson MD) Hoarseness Bronchitis Chronic rhinitis Hyperlipidemia Hypertension Abnormal chest x-ray Chronic restrictive lung disease COPD (chronic obstructive pulmonary disease) CAD (coronary artery disease) Surgical History Hx of cardiac catheterization History of cataract surgery H/O total knee replacement Family History Father No problems noted. Social History Patient Tobacco Use Status: Former Tobacco user Tobacco use type: Cigarette Years Smoked: 30 years Current occupational status: employed and retired Current occupation: rt hand/ self employeed/incubator Review of Systems Const Reports daytime sleepiness and Denies night sweats ENT Denies change in voice, Denies lip swelling, Denies mouth pain, Reports nasal congestion, Reports nasal discharge, Reports nasal obstruction, Reports post nasal drip, Reports sinus pressure and Denies tongue swelling Card Denies chest pain and Reports dyspnea on exertion Resp Reports chest congestion, Reports cough, Denies hemoptysis, Denies excessive phlegm production, Reports dyspnea on exertion and Reports wheezing GI Denies abdominal pain Musc Denies no additional complaints Neuro Denies Neuro-related abnormal movements Psych Denies no additional complaints Freddy/Lymph Denies easy bleeding and Denies lymphadenopathy Aller/Immun Denies lip swelling, Denies tongue swelling and Reports wheezing Physical Exam Vital Signs: Last Vital Signs Pulse 100 06/26/25 11:02 BP 138/78 06/26/25 11:02 Pulse Ox 93 06/26/25 11:02 Oxygen Delivery Method Room Air 06/26/25 11:02 BMI result Body Mass Index 35.0 Const General: alert HEENT General nose exam: Abnormal mucous membranes and turbinates present erythematous and other (dry) Eyes Pupils: Equal, round and reactive pupils present Neck Neck: Yes normal visual inspection, Yes full ROM and Yes no lymphadenopathy Chest Chest palpation & inspection: normal inspection of the chest Resp Effort & Inspection: normal respiratory effort Auscultation: no wheezes and diminished lung sounds Cardio Rate: regular rate Rhythm: regular rhythm Heart sounds: S1 normal heart sound present and S2 normal heart sound present GI Palpation (GI): Soft to palpation and nontender Auscultation: normal bowel sounds Skin General skin exam: rashes and/or lesions noted Neuro Cranial nerves: Yes Equal, round and reactive pupils present Assessment & Plan Assessment & Plan (1) COPD (chronic obstructive pulmonary disease): Code(s): J44.9 - Chronic obstructive pulmonary disease, unspecified Category: Medical Qualifiers: COPD type: COPD with acute exacerbation Qualified Code(s): J44.1 - Chronic obstructive pulmonary disease with (acute) exacerbation (2) Chronic restrictive lung disease: Code(s): J98.4 - Other disorders of lung Category: Medical (3) Abnormal chest x-ray: Code(s): R93.89 - Abnormal findings on diagnostic imaging of other specified body structures Category: Medical (4) Chronic rhinitis: Comment: worsened by Afrin Code(s): J31.0 - Chronic rhinitis Category: Medical (5) Insomnia: Code(s): G47.00 - Insomnia, unspecified Category: Medical Qualifiers: Insomnia type: primary Qualified Code(s): F51.01 - Primary insomnia (6) Hoarseness: Code(s): R49.0 - Dysphonia Category: Medical Plan start Doxycycline sputum cx CXR use nebulizer 2-3 times a day as needed Continue Trelegy 200 nasal rinsing with neti bottle at night contiune Singulair contiune Claritin stop Astelin nasal spray continue Ipratropium nasal spray continue Flonase nasal spray No Afrin continue oxygen 2L while sleeping start Flucinazole x 2-3 days ENT referral F/U 6-8 months Orders: Orders XR chest 2V Today J40 - Bronchitis, not specified as acute or chronic Sputum Cult + Gram stain Today J40 - Bronchitis, not specified as acute or chronic, R91.1 - Solitary pulmonary nodule Referrals Ear/Nose/Throat Referral R49.0 - Dysphonia Medications: New fluconazole 100 mg PO DAILY 7 tabs 0RF doxycycline monohydrate 100 mg PO BID 28 tabs 0RF 14 days Coding Level of Care Code Complex visit Add On G2211 Diagnoses Chronic obstructive pulmonary disease with acute exacerbation J44.1 COPD type: COPD with acute exacerbation Chronic restrictive lung disease J98.4 Abnormal chest x-ray R93.89 Chronic rhinitis J31.0 Primary insomnia F51.01 Insomnia type: primary Hoarseness R49.0 Time Spent (min) 17
== END 2025-06-26 11:36 | disposition home or self-care (01) ==
LOC: HO.HPS 10:56
PROVIDERS: PCP Internal Medicine; Visit Provider Hospitalist
DX: J44.1 Chronic obstructive pulmonary disease with (acute) exacerbation (principal); J98.4 Other disorders of lung; R93.89 Abnormal findings on diagnostic imaging of other specified body structures; J31.0 Chronic rhinitis; F51.01 Primary insomnia; R49.0 Dysphonia
CPT/HCPCS: 99214; G2211

== ENCOUNTER → 2025-06-26 10:55 | Outpatient (BNVA) | payer MEDICARE, OTHER, SELFPAY | PROVIDERS: PCP Internal Medicine; Visit Provider Hospitalist | DX: J44.1 Chronic obstructive pulmonary disease with (acute) exacerbation (principal); J98.4 Other disorders of lung; R93.89 Abnormal findings on diagnostic imaging of other specified body structures; J31.0 Chronic rhinitis; F51.01 Primary insomnia; R49.0 Dysphonia | CPT/HCPCS: 99212 ==